=== PATIENT | female | born 1970 | race Caucasian/White ===

== ENCOUNTER → 2023-12-19 14:41 | Outpatient (BNVA) | payer MEDICAID, SELFPAY | PROVIDERS: PCP Nurse Practitioner Family; Visit Provider Nurse Practitioner Family | DX: M17.11 Unilateral primary osteoarthritis, right knee (principal); M81.0 Age-related osteoporosis without current pathological fracture; Z86.2 Personal history of diseases of the blood and blood-forming organs and certain disorders involving the immune mechanism; R60.0 Localized edema; Z86.39 Personal history of other endocrine, nutritional and metabolic disease; Z86.718 Personal history of other venous thrombosis and embolism | CPT/HCPCS: 73562; 80053; 80061; 82728; 83036; 83550; 84439; 84443; 85025; 85379 ==

== ENCOUNTER → 2024-04-09 15:49 | Outpatient (BNVA) | payer MEDICAID, SELFPAY | PROVIDERS: PCP Nurse Practitioner Family; Visit Provider Nurse Practitioner Family | DX: E11.9 Type 2 diabetes mellitus without complications (principal); Z71.89 Other specified counseling | CPT/HCPCS: 80053; 80307; 82043; 83036 ==

== ENCOUNTER → 2024-09-24 15:45 | Outpatient (BNVA) | payer MEDICAID, SELFPAY | PROVIDERS: PCP Nurse Practitioner Family; Visit Provider Nurse Practitioner Family | DX: E11.65 Type 2 diabetes mellitus with hyperglycemia (principal); Z86.2 Personal history of diseases of the blood and blood-forming organs and certain disorders involving the immune mechanism; E55.9 Vitamin D deficiency, unspecified | CPT/HCPCS: 80053; 80061; 82306; 82728; 83550; 83721; 85025 ==

== ENCOUNTER → 2024-10-29 15:12 | Outpatient (BNVA) | payer MEDICAID, SELFPAY | PROVIDERS: PCP Nurse Practitioner Family; Visit Provider Nurse Practitioner Family | DX: R06.02 Shortness of breath (principal) | CPT/HCPCS: 71046; 80053; 83036; 83880; 85025 ==

== ENCOUNTER 2024-11-19 17:05 | Inpatient (IN) | payer MEDICAID, SELFPAY ==
[2024-11-19 17:06] VITALS: BP 163/99; PULSE 84; TEMP 36.4; O2SAT 91
--- OUTSIDE RECORDS SUMMARY | 2024-11-19 17:14 | XMS_ITS | Clinical Summary ---
Author Organization [facility] Address [address] [place] [address] Care Team Providers Care Repatcher Name Role Phone Aliya Grace, MSN Primary Care Provider [phone] Source Comments PLEASE NOTE, if this patient is a minor, it may be UNLAWFUL to discuss sensitive information that is contained in these records (such as FAMILY PLANNING, MENTAL HEALTH or SUBSTANCE ABUSE) with the minor patient's parent or other person without the patient's specific authorization.[facility] Allergies Active Allergy Reactions Criticality Noted Date Comments Doxycycline Hives High 03/17/2021 Gadolinium-Containing Contrast Media Itching Low 03/29/2021 Patient stated she started to itch on her face right after contrast was injected which resolved with hydrating orally with water post exam with contrast. Patient denied difficulty breathing or swallowing, no hives present. Guaifenesin High 03/17/2021 Other Reaction(s): Seizure RESP DIFF, COMA Iodine Swelling Low 06/20/2007 Sulfa (Sulfonamide Antibiotics) Hives,Rash High 06/20/2007 Medications amoxicillin (AMOXIL) 500 mg capsule Take 1 Capsule by mouth every 8 (eight) hours 09/03/19 22 Active VENTOLIN HFA 90 mcg/actuation inhaler inhale TWO puffs, by INHALATION route, EVERY 6 HOURS NEEDED FOR wheezing Active prazosin (MINIPRESS) 2 mg capsule take 3 TO 4 capsules BY MOUTH ONCE DAILY AT BEDTIME NEEDED FOR nightmares 10/14/19 25 Active gabapentin (NEURONTIN) 300 mg capsule TAKE ONE CAPSULE BY MOUTH ON DAY ONE THEN TAKE TWO CAPSULES DAILY Active furosemide (LASIX) 40 mg tablet TAKE TWO TABLETS BY MOUTH ONCE DAILY IN THE MORNING AND ONE tablet AT NOON FOR FIVE DAYS AND THEN take TWO tablets every morning thereafter 03/20/19 25 Active hydroCHLOROthiazid e (HYDRODIURIL) 25 mg tablet Take 25 mg by mouth every morning. Active lamoTRIgine (LAMICTAL) 25 mg tablet TAKE THREE TABLETS BY MOUTH ONCE DAILY FOR mood stabilizer 10/14/19 25 Active TRUEPLUS LANCETS 33 gauge USE DIRECTED TO PRICK THE SKIN FOR BLOOD SUGAR CHECKS FOUR TIMES DAILY 09/12/19 25 Active metFORMIN (GLUCOPHAGE) 500 mg tablet Take 500 mg by mouth 2 (two) times daily with a meal. 07/25/19 25 Active lithium carbonate 300 mg capsule TAKE 1 CAPSULE BY MOUTH AT BEDTIME FOR BIPOLAR DEPRESSION 06/20/19 23 Active DULERA 200-5 mcg/actuation inhaler 2 Puffs 2 (two) times daily. 10/14/19 25 Active ondansetron ODT (ZOFRAN-ODT) 8 mg disintegrating tablet TAKE ONE TABLET BY MOUTH EVERY 8 HOURS NEEDED FOR nausea AND vomiting 01/25/20 24 Active QUEtiapine (SEROQUEL) 100 mg tablet TAKE 1 AND 1/2 TABLETS BY MOUTH ONCE DAILY AT BEDTIME FOR mood AND SLEEP Active FEROSUL 325 mg (65 mg iron) tablet Take 1 Tablet by mouth once daily. 05/09/19 25 Active FLUoxetine (PROZAC) 40 mg capsule Take 80 mg by mouth. 07/25/19 25 Active fluticasone (FLONASE) 50 mcg/actuation nasal spray USE TWO SPRAYS IN NOSTRIL(s) DAILY Active EPINEPHrine (EPIPEN) 0.3 mg/0.3 mL pen injector ADMINISTER 0.3 MG IN THE MUSCLE NEEDED FOR ANAPHYLAXIS . 12/20/19 24 Active atorvastatin (LIPITOR) 40 mg tablet Take 40 mg by mouth once daily. 10/14/19 25 Active TRUE METRIX GLUCOSE TEST STRIP strips USE DIRECTED WITH GLUCOMETER TO CHECK BLOOD SUGAR 08/02/19 25 Active TRUE METRIX AIR GLUCOSE METER monitoring kit USE DIRECTED TO CHECK BLOOD SUGAR 08/02/19 25 Active cetirizine (ZYRTEC) 10 mg tablet Take 10 mg by mouth once daily. 09/25/19 25 Active diazePAM (VALIUM) 10 mg tablet take ONE-HALF tablet TO ONE tablet BY MOUTH FOUR TIMES DAILY NEEDED FOR extreme anxiety Active doxepin (SINEQUAN) 50 mg capsule TAKE ONE CAPSULE BY MOUTH ONCE DAILY AT BEDTIME NEEDED FOR SLEEP 10/14/19 25 Active DULoxetine (CYMBALTA) [address] capsule TAKE ONE CAPSULE BY MOUTH ONCE DAILY AT BEDTIME FOR depression AND anxiety 10/14/19 25 Active Active Problems Problem Noted Date Diagnosed Date Asthma 03/17/2021 Bipolar disorder 03/17/2021 History of methicillin resis tant Staphylococcus aureus infection 03/17/2021 Impetigo 03/17/2021 Methicillin resistant Staphylococcus aureus infe ction 03/17/2021 Overview (10/21/2024): Abscess, closed collected 09/20/18 22:31:42 CDTAbscess, open collected 06/13/18 16:14:00 CDTAbscess, open collected 03/11/18 21:11:00 CSTNares collected 12/19/15 18:30:00 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/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 Osteoporosis 11/24/2008 Encounters Date Type Department Care Team Description 10/21/2024 1:00 PM CDT Office Visit [facility] [address] [place] [address] Sulma Yoo DMD from Last 3 Months Social History Tobacco Use Types Packs/Day Years Used Date Smoking Tobacco: Never Smokeless Tobacco: Never Tobacco Cessation:Counseling Given: Not Answered Social Connections Answer Date Recorded Connectedness 0 10/22/2023 Financial Resource Strain Answer Date R ecorded Financial Resource Strain 0 2023 Stress Answer Date Recorded Stress 0 05/30/2023 Physical Activity Answer Date Recorded Physical Activity 0 05/30/2023 Food Insecurity Answer Date Recorded Food 0 11/01/2023 Transportation Needs Answer Date Record ed Transportation 0 05/30/2023 Housing Stability Answer Date Recorded Housing 0 05/30/2023 Safety and Environment Answer Date Perry rded Safety 0 05/30/2023 Utilities Answer Date Recorded Utilities 0 05/30/2023 Employment Answer Date Recorded Stress 0 10/22/2023 Comments No Sex and Gender Information Value Date Recorded Sex Assigned at Not on file Legal Sex Female 7:19 PM PDT Gender Identity Female 07/27/2023 4:05 PM PDT Sexual Orientation Straight 07/27/2023 4: 05 PM PDT Last Filed Vital Signs Vital Sign Reading Time Taken Comments Blood Pressure 140/85 09/02/2021 12:11 PM CDT Pulse - - Temperature - - Respiratory Rate - - Oxygen Saturation - - Inhaled Oxygen Concentration - - Weight - - Height - - Body Mass Index - - Plan of Treatment Health Maintenance Due Date Last Done Comments Anxiety Screening 1968 Dental Perio Charting 1968 Dental Prophy 1968 HPV Screening 1968 Hepatitis C Screening 1968 LTBI Screening (#1) 1968 Lipid Screening 1968 Pap + HPV 1968 HIV Screening 07/24/1983 Imm-Hepatitis B (1 of 3 - 19 + 3-dose series) 07/24/1987 Imm-Pneumococcal 50+ (1 of 2 - PCV) 07/24/1987 Cervical Cancer Screening 1989 Pap Smear 1989 Breast Cancer Screening (Mammogram) 2008 CT Colonography 2013 Colonoscopy 2013 Colorectal Cancer Screening 2013 FIT/gFOBT 2013 Fecal DNA 2013 Flexible Sigmoidoscopy 2013 Imm-Zoster, Recombinant (1 of 2) 2018 Hypertension Screening (#1) 09/02/2022 Alcohol and Drug Screen 02/06/2024 Depression Annual Screen 02/06/2024 [id number] (2 - season) 2024 022 Imm-Influenza (#1) 2024 11/25/2020, 1 02/20/2015, 12/18/2000 Diabetes Screening 12/13/2024 12/14/2023 Tobacco Screening 10/21/2025 10/21/2024 Dental BW 10/23/2025 10/21/2024 Dental Examination 10/23/2025 10/21/2024 Imm-DTaP/Tdap/Td (2 - Td or Tdap) 11/14/2025 016 Dental FMX/Pano 10/23/2029 10/21/2024 Cervical Ablation/Cold-Knife Conization Discontinued Cervical Cryotherapy Discontinued Colposcopy Discontinued Endometrial Biopsy Discontinued Excision/Leep Discontinued HPV Genotyping Discontinued Vaginal Pap Discontinued Vulvoscopy Discontinued Procedures Procedure Name Priority Date/Time Associated Diagnosis Comments PANORAMIC RADIOGRAPHIC IMAGE Routine 10/21/2024 1:00 PM CDT Encounter for dental examination 25 INTRAORAL - PERIAPICAL EACH ADD RADIOGRAPH IMAGE Routine 10/21/2024 1:00 PM CDT Encounter for dental examination 10 INTRAORAL - PERIAPICAL EACH ADD RADIOGRAPH IMAGE Routine 10/21/2024 1:00 PM CDT Encounter for dental examination 6 INTRAORAL - PERIAPICAL FIRST RADIOGRAPHIC IMAGE Routine 10/21/2024 1:00 PM CDT Encounter for dental examination 8 INTRAORAL - PERIAPICAL EACH ADD RADIOGRAPH IMAGE Routine 10/21/2024 1:00 PM CDT Encounter for dental examination COMP ORAL EVALUATION - NEW/ESTABLISHED PATIENT Routine 10/21/2024 1:00 PM CDT Encounter for dental examination BITEWINGS - FOUR RADIOGRAPHIC IMAGES Routine 10/21/2024 1:00 PM CDT Encounter for dental examination 30 MOD AMALGAM - WISDOM (NON BILLABLE) Routine 10/21/2024 12:00 AM CDT 19 MODB AMALGAM - WISDOM (NON BILLABLE) Routine 10/21/2024 12:00 AM CDT from Last 3 Months Insurance [place] MEDICAID DENT[place] Care Teams Repatcher Relationship Specialty Start Date End Date Aliya Grace FNP, MSN [address] [place] [address] PCP - General IUSS ANALYST Nurse Practitioner 11/05/23
--- NOTE | 2024-11-19 17:24 | W.ED.PSYCHS ---
HPI - Psych General: Chief Complaint: Psychiatric Symptoms Stated Complaint: SI Time Seen by Provider: 11/19/24 17:05 History of Present Illness: Patient is 54-year-old female with longstanding history of depression, and anxiety, presents for suicide ideations. Patient presented to [facility] clinic in [place] with lower extremity edema, and suicide ideations. She was brought from the clinic over here due to psychiatric symptoms with suicide ideation. Patient stated her affairs were in order. She did not have a plan. Contributing factors: Patient lost her emotional support animal of 20 years that she relates as her daughter. Apparently she received her cat when she lost her children 20 years ago, and her cat was with her at all times. Her cat could talk, and was quite smart. She has guilt for keeping her cat alive an additional 2 months at the vet felt like the cat should be euthanized, and she has guilt for given her cat Valium with the gabapentin the last time when she quit talking. She is tearful, having bad dreams, dreams are worsening in nature. Associated symptoms: Reports depression and suicidal ideation Related Data Home Medications ?Medication ?Instructions ?Recorded ?Confirmed quetiapine 100 mg tablet mg PO 01/02/24 11/19/24 diazepam 10 mg tablet 10 mg PO 01/16/24 11/19/24 doxepin 25 mg capsule mg PO BEDTIME 01/16/24 11/19/24 fluoxetine 40 mg capsule 80 mg PO DAILY 01/16/24 11/19/24 lamotrigine 25 mg tablet 25 mg PO 01/16/24 11/19/24 prazosin 2 mg capsule 2 mg PO 01/16/24 11/19/24 quetiapine 100 mg tablet 100 mg PO DAILY 01/16/24 11/19/24 quetiapine 50 mg tablet 50 mg PO DAILY 01/16/24 11/19/24 Previous Rx's ?Medication ?Instructions ?Recorded alcohol swabs 1 pad topical DIRECTED #200 ea 12/28/23 atorvastatin 40 mg tablet 40 mg PO DAILY #90 tabs 12/28/23 ferrous sulfate 325 mg (65 mg 325 mg PO DAILY #90 tabs 12/28/23 iron) tablet ondansetron 8 mg disintegrating 8 mg PO Q8H PRN nausea and 01/25/24 tablet vomiting #20 tabs hydrochlorothiazide 25 mg tablet See Rx Instructions .Route 07/31/24 .COMPLEX #90 tabs blood sugar diagnostic (Blood #200 ea 08/01/24 Glucose Test strips) blood-glucose meter #1 ea 08/01/24 lancets #200 ea 08/01/24 cetirizine 10 mg tablet (Zyrtec) 10 mg PO DAILY #90 tabs 09/24/24 fluticasone propionate 50 2 spray intranasal DAILY #16 grams 09/24/24 mcg/actuation nasal spray,suspension epinephrine 0.3 mg/0.3 mL 0.3 mg (0.3 mL) IM Q10M PRN 10/14/24 injection, auto-injector (EpiPen) anaphylaxis #1 ea metformin 500 mg tablet See Rx Instructions .Route 10/28/24 .COMPLEX #60 tabs gabapentin 300 mg capsule 300 mg PO TID #90 caps 11/11/24 Allergies Allergy/AdvReac Type Severity Reaction Status Date / Time doxycycline Allergy swelling Verified 11/19/24 17:11 facial Iodinated Contrast Media Allergy ALGY-Swell Verified 11/19/24 17:11 Lip/Tongue/Throat Sulfa (Sulfonamide Allergy Unknown Verified 11/19/24 17:11 Antibiotics) Review of Systems General: Reports: 10 or more systems reviewed and unremarkable except in HPI and below Const: Reports: fatigue and malaise; Denies: fever(s) or chills Eyes: Denies: change in vision or blurry vision ENMT: Denies: nasal discharge Card: Denies: chest pain or palpitations Resp: Denies: dyspnea or productive cough GI: Reports: nausea; Denies: abdominal pain or vomiting : Denies: flank pain or difficulty voiding Neuro: Denies: headache(s) or numbness in extremities Psych: Reports: anxiety, depression, sleeping more, hopelessness, change in appetite, irritability and suicidal ideation PFSH ED PFSH: Social History Smoking and tobacco/nicotine status: never used tobacco/nicotine Physical Exam Const: COMMON NORMALS: no acute distress, average body habitus and patient oriented x3 HENMT: COMMON NORMALS: normocephalic and atraumatic HEAD & SCALP: normocephalic and atraumatic Neck/C-Spine: COMMON NORMALS: full ROM and no lymphadenopathy Lymph: LYMPHATIC: no lymphadenopathy noted Chest: COMMONS NORMALS: normal inspection of the chest and normal palpation of entire chest wall Resp: COMMON NORMALS: normal respiratory effort, No retractions and clear to auscultation bilaterally AUSCULTATION: clear to auscultation bilaterally Cardio: COMMON NORMALS: regular rate, regular rhythm and Peripheral pulses 2+ throughout RATE: regular rate RHYTHM: regular rhythm PERIPHERAL PULSES: Peripheral pulses 2+ throughout OTHER: +2 pedal edema equal GI: COMMON NORMALS: Normal to inspection, nondistended, normoactive bowel sounds present, Soft to palpation, non-tender and No hepatosplenomegaly present PALPATION: Yes Soft to palpation and Yes No hepatosplenomegaly present : COMMON NORMALS: Yes no CVA tenderness BLADDER/KIDNEY EXAM: Yes no CVA tenderness Back/Pelvis: COMMON NORMALS: no CVA tenderness Neuro: COMMON NORMALS: patient oriented x3 Course Reevaluation(s): Reevaluation #1: Patient resting, calm Consultations: Consultation #1: Dr. Patino accepted at 1900 Vital Signs: Vital signs: Vital Signs Temperature 97.6 F 11/19/24 17:06 Pulse Rate 84 11/19/24 17:06 Blood Pressure 163/99 11/19/24 17:06 Pulse Oximetry 91 11/19/24 17:06 Oxygen Delivery Me thod Room Air 11/19/24 17:06 MDM - Psych Medical Decision Making Patient is a 54-year-old female that reports to emergency room with history of depression, anxiety, and bipolar disorder, that lost her best friend, emotional support animal that went everywhere with her, her cat of 20 years. She just wants to . She is having bad dreams. She voluntarily wants to go to the psychiatric center. As well, she complained of lower extremity edema, and bloating. She has not had any medication today. I have switched her to spironolactone 100 mg p.o. x 1. No additional concerns were found by lab, and she is medically cleared. Discussed with Dr. Nuñez. Medical Records I reviewed the patient's medical records. Lab Data 11/19/24 17:52 11/19/24 17:52 Laboratory Results WBC 6.72 10^3/uL (3.29-11.43) 11/19/24 17:52 RBC 3.59 10^6/uL (3.85-5.65) L 11/19/24 17:52 Hgb 10.60 g/dL (11.27-16.99) L 11/19/24 17:52 Hct 34.0 % (36-47) L 11/19/24 17:52 MCV 94.7 fl (85-98) 11/19/24 17:52 MCH 29.5 pg (27-33) 11/19/24 17:52 MCHC 31.2 g/dL (30-55) 11/19/24 17:52 RDW 13.9 % (12.1-15.1) 11/19/24 17:52 Plt Count 193 10^3/cmm (157-399) 11/19/24 17:52 MPV 10.4 fL (7.4-10.4) 11/19/24 17:52 Neut % (Auto) 50.7 % 11/19/24 17:52 Lymph % (Auto) 34.5 % 11/19/24 17:52 Brule % (Auto) 9.5 % 11/19/24 17:52 Eos % (Auto) 4.8 % 11/19/24 17:52 Baso % (Auto) 0.4 % 11/19/24 17:52 Neut # (Auto) 3.40 10^3/uL (1.8-7.7) 11/19/24 17:52 Lymph # (Auto) 2.3 10^3/uL (0.8-4.8) 11/19/24 17:52 Brule # (Auto) 0.6 10^3/uL (0.2-0.9) 11/19/24 17:52 Eos # (Auto) 0.3 10^3/uL (0.0-0.8) 11/19/24 17:52 Baso # (Auto) 0.0 10^3/uL (0.0-0.1) 11/19/24 17:52 Nucleated RBC % (auto) 0 % 11/19/24 17:52 Nucleated RBCs # 0.0 /100WBC 11/19/24 17:52 Sodium 141 mmol/L (136-145) 11/19/24 17:52 Potassium 4.3 mmol/L (3.5-5.1) 11/19/24 17:52 Chloride 101 mmol/L (98-107) 11/19/24 17:52 Carbon Dioxide 31 mmol/L (22-29) H 11/19/24 17:52 Anion Gap 13.3 (5-19) 11/19/24 17:52 BUN 19 mg/dL (6-20) 11/19/24 17:52 Creatinine 0.9 mg/dL (0.5-0.9) 11/19/24 17:52 GFR Calculation 64.8 mL/min (90-130) L 11/19/24 17:52 Glucose 95 mg/dL (65-115) 11/19/24 17:52 Calculated Osmolality 294 mOsm/kg (285-295) 11/19/24 17:52 Calcium 9.2 mg/dL (8.5-10.5) 11/19/24 17:52 Total Bilirubin 0.2 mg/dL (0.15-1.2) 11/19/24 17:52 AST 18 U/L (0-32) 11/19/24 17:52 ALT 22 U/L (0-33) 11/19/24 17:52 Alkaline Phosphatase 118 U/L (35-105) H 11/19/24 17:52 Total Protein 6.5 g/dL (6.6-8.7) L 11/19/24 17:52 Albumin 3.7 g/dL (3.5-5.2) 11/19/24 17:52 Globulin 2.8 g/dL (1.3-4.6) 11/19/24 17:52 TSH 2.62 uIU/mL (0.27-4.20) 11/19/24 17:52 Urine Color Yellow (Yellow) 11/19/24 18:05 Urine Appearance Clear (CLEAR) 11/19/24 18:05 Urine pH 6.0 (5-7) 11/19/24 18:05 Ur Specific [place] 1.026 (1.005-1.030) 11/19/24 18:05 Urine Protein Negative (Negative) 11/19/24 18:05 Urine Glucose (UA) Negative (Normal) 11/19/24 18:05 Urine Ketones Trace (Negative) 11/19/24 18:05 Urine Blood Negative (Negative) 11/19/24 18:05 Urine Nitrate Negative (Negative) 11/19/24 18:05 Urine Bilirubin Negative (Negative) 11/19/24 18:05 Urine Urobilinogen 1.0 mg/dL (Negative) 11/19/24 18:05 Ur Leukocyte Esterase Negative (Negative) 11/19/24 18:05 Urine RBC 0-2 /hpf (0-2) 11/19/24 18:05 Urine WBC 0-5 /hpf (0-5) 11/19/24 18:05 Ur Squamous Epith Cells 0-5 /hpf (0-5) 11/19/24 18:05 Amorphous Sediment Not Reportable 11/19/24 18:05 Urine Bacteria Trace /hpf (NONE) 11/19/24 18:05 Hyaline Casts 2.46 /lpf 11/19/24 18:05 Salicylates < 0.3 mg/dL (3-10) L 11/19/24 17:52 Urine Opiates Screen Negative ng/mL (Negative) 11/19/24 18:05 Acetaminophen 5.5 ug/mL (10-30) L 11/19/24 17:52 Ur Barbiturates Screen Negative ng/mL (Negative) 11/19/24 18:05 Ur Phencyclidine Scrn Negative ng/mL (Negative) 11/19/24 18:05 Ur Amphetamines Screen Negative ng/mL (Negative) 11/19/24 18:05 U Benzodiazepines Scrn Positive ng/mL (Negative) H 11/19/24 18:05 Urine Cocaine Screen Negative ng/mL (Negative) 11/19/24 18:05 U Marijuana (THC) Screen Negative ng/mL (Negative) 11/19/24 18:05 Ethyl Alcohol < 10 mg/dL (0-10) 11/19/24 17:52 No radiology studies performed this visit Discharge Plan Discharge Patient Disposition: Xfer Psychiatric Hosp Clinical Impression: Suicidal ideation Condition: Stable Discharge Diet: Low Salt Discharge Activity: Resume usual activity Coding Level of Care Code ED Quality Review Trainer for Charli Oquendo
--- NOTE | 2024-11-19 17:25 | PC.NURSE ---
pt changed into green paper scrubs
[2024-11-19 18:06] LABS: Hematocrit 34.0 % (36-47); Hemoglobin 10.60 g/dL (11.27-16.99); Mean Corpuscular HGB Conc 31.2 g/dL (30-55); Mean Corpuscular Hemoglobin 29.5 pg (27-33); Mean Corpuscular Volume 94.7 fl (85-98); Nucleated Red Blood Cells % 0 %; Platelet Count 193 10^3/cmm (157-399); Red Blood Count 3.59 10^6/uL (3.85-5.65); White Blood Count 6.72 10^3/uL (3.29-11.43)
[2024-11-19 18:22] LABS: Glucose Urine UA Negative (Normal); Nitrate Urine Negative (Negative); Specific Gravity, Urine 1.026 (1.005-1.030)
[2024-11-19 18:28] LABS: Add Urine Microscopic? YES; PCP Screen Urine Negative (Negative)
[2024-11-19 18:37] LABS: Acetaminophen 5.5 ug/mL (10-30); Alanine Aminotransferase 22 U/L (0-33); Albumin Level 3.7 g/dL (3.5-5.2); Alkaline Phosphatase 118 U/L (35-105); Anion Gap 13.3 (5-19); Aspartate Amino Transferase 18 U/L (0-32); Blood Urea Nitrogen 19 mg/dL (6-20); Calcium 9.2 mg/dL (8.5-10.5); Carbon Dioxide 31 mmol/L (22-29); Chloride 101 mmol/L (98-107); Globulin 2.8 g/dL (1.3-4.6); Glucose 95 mg/dL (65-115); Osmolality Calculated 294 mOsm/kg (285-295); Potassium 4.3 mmol/L (3.5-5.1); Sodium 141 mmol/L (136-145); Thyroid Stimulating Hormone 2.62 uIU/mL (0.27-4.20); Total Protein 6.5 g/dL (6.6-8.7)
[2024-11-19 18:38] LABS: Alcohol Level < 10 mg/dL (0-10); Salicylate < 0.3 mg/dL (3-10)
[2024-11-19 20:22] VITALS: BP 120/86; PULSE 97; RESP 18; TEMP 36.7; O2SAT 91
[2024-11-19 22:00] VITALS: BP 120/86; PULSE 97; RESP 18; TEMP 36.7; O2SAT 91
--- NOTE | 2024-11-20 00:10 | PC.NURSE ---
96 Hour Involuntary Hold Patient Rights have been reviewed with the patient and a copy of the same has been provided to her. Olimpia Green RN was present at bedside during the presentation of Rights.
--- NOTE | 2024-11-20 04:20 | PC.ADMIT ---
Addendum entered by Olimpia Green RN 11/20/24 04:21: admission note Original Note: [email or web address] Minerva Bacon Admission Note: The patient,Khushi Portillo,54 y/o, was given written information regarding hospital policies, unit procedures and contact persons. Patient's smoking status: never smoked. pt skin assessment completed and pt left wrist and left ankle had multiple healing lacerations. When pt was asked about these she stated that she does cut, and she uses a razor blades. pt also had 2 scratches on her upper mid abdomen that she states were from cats. Vital Signs - 8 hr 11/19/24 20:22 11/19/24 20:24 11/19/24 22:00 Temperature 98.0 F 98.0 F Pulse Rate 97 97 Respiratory Rate 18 18 Blood Pressure 120/86 120/86 Pulse Oximetry 91 91 Oxygen Delivery Method Room Air Room Air Room Air
--- NOTE | 2024-11-20 04:22 | PC.NURSE ---
pt 96 hour When speaking with pt about her 96 hour hold, we had a discussion about what this meant. pt unhappy but understanding. also had a discussion with pt about resources out side of the facility for herself that she may not know about. pt receptive to this education
[2024-11-20 06:00] VITALS: BP 118/64; PULSE 72; RESP 12; O2SAT 88
--- NOTE | 2024-11-20 08:24 | W.PM.NPUH&PS ---
Providers/Chief Complaint Admitting Physician: Nando Patino MD Primary Care Provider: Kate Phillips NP Chief Complaint: SI HPI NPU History of Present Illness Khushi Portillo is a 54 year old female who presented to the emergency department with the following report: Chief Complaint: Psychiatric Symptoms Stated Complaint: SI Time Seen by Provider: 11/19/24 17:05 History of Present Illness: Patient is 54-year-old female with longstanding history of depression, and anxiety, presents for suicide ideations. Patient presented to [facility] clinic in [place] with lower extremity edema, and suicide ideations. She was brought from the clinic over here due to psychiatric symptoms with suicide ideation. Patient stated her affairs were in order. She did not have a plan. Contributing factors: Patient lost her emotional support animal of 20 years that she relates as her daughter. Apparently she received her cat when she lost her children 20 years ago, and her cat was with her at all times. Her cat could talk, and was quite smart. She has guilt for keeping her cat alive an additional 2 months at the vet felt like the cat should be euthanized, and she has guilt for given her cat Valium with the gabapentin the last time when she quit talking. She is tearful, having bad dreams, dreams are worsening in nature. Associated symptoms: Reports depression and suicidal ideation. She was admitted to the neuropsychiatric unit for definitive treatment of those issues. She was very upset about being here after her everything that occurred that was a plan for her to be here including coming from the clinic and being evaluated in the emergency department she was advised she would come to the unit but then was upset that she was not discharged immediately they put an affidavit in the chart but ultimately she was starting to push for discharge and so it 96-hour hold was instituted. Her UDS was unremarkable for anything outside of benzodiazepines and she does have a prescription reportedly for Valium 10 mg 1/2-1 p.o. 4 times daily as needed. She presented today reporting a very convoluted story about why she is here. Mostly what she was able to articulate was that she was sad at the of her cat. She reported that her cat was able to talk but then later as we reviewed that she was talking about occasionally saying mama. She then talked about the of her boys multiple years ago but then she identified that she was actually talking about the cats. And then she was talking about her sons reporting that they are in their 30s and she still pays for everything and there is always conflicts on the property but which she lives. She reports that this property has her children and their father who is her ex and they all live on the property but most of them in different buildings. She talked about significant conflicts on that property but cannot really articulate why she was identifying herself as suicidal yesterday both at the clinic and then here in the emergency department. She tried to explain it but it once again became a very long convoluted story that had something to do with her physical health and her reporting that she maintain fluid and had great concern about the fluid around her stomach and around my heart. She reports that her outpatient doctor identified that this fluid overload around her heart existed but she could not articulate how that was shown she talked about having blood draws and we discussed the fact that you cannot determine fluid around the heart by a blood test if she denied having had any confirmatory imaging. We tried to have a conversation to help understand what would separate this from a somatic delusion and she was not able to answer questions in a way that was meaningful. She denied active drug use. She reported a history of hospitalization in the distant past but then could not explain why that would have happened. She was very focused on wanting to discharge whenever questions were asked to get more helpful information she was incapable. We discussed getting some collateral information from her daughter and her out patient positions to understand what it happened in this situation and that we would identify what we could go from there. Meds NPU Home Medications ?Medication ?Instructions ?Recorded ?Confirmed ?Last Taken ?Type alcohol swabs 1 pad topical DIRECTED #200 ea 12/28/23 11/20/24 Unknown Rx atorvastatin 40 mg tablet 40 mg PO DAILY #90 tabs 12/28/23 11/19/24 Unknown Rx ferrous sulfate 325 mg (65 mg 325 mg PO DAILY #90 tabs 12/28/23 11/20/24 Unknown Rx iron) tablet quetiapine 100 mg tablet 250 mg PO DAILY 01/02/24 11/20/24 Unknown History diazepam 10 mg tablet See Rx Instructions .Route 01/16/24 11/20/24 Unknown History .COMPLEX PRN Anxiety doxepin 25 mg capsule 25 mg PO BEDTIME 01/16/24 11/19/24 Unknown History lamotrigine 25 mg tablet 25 mg PO DAILY 01/16/24 11/20/24 Unknown History prazosin 2 mg capsule 2 mg PO BEDTIME 01/16/24 11/20/24 Unknown History ondansetron 8 mg disintegrating 8 mg PO Q8H PRN nausea and 01/25/24 11/20/24 Unknown Rx tablet vomiting #20 tabs hydrochlorothiazide 25 mg tablet See Rx Instructions .Route 07/31/24 11/20/24 Unknown Rx .COMPLEX #90 tabs blood sugar diagnostic (Blood #200 ea 08/01/24 11/20/24 Unknown Rx Glucose Test strips) blood-glucose meter #1 ea 08/01/24 11/20/24 Unknown Rx lancets #200 ea 08/01/24 11/20/24 Unknown Rx cetirizine 10 mg tablet (Zyrtec) 10 mg PO DAILY #90 tabs 09/24/24 11/19/24 Unknown Rx fluticasone propionate 50 2 spray intranasal DAILY #16 grams 09/24/24 11/20/24 Unknown Rx mcg/actuation nasal spray,suspension epinephrine 0.3 mg/0.3 mL 0.3 mg (0.3 mL) IM Q10M PRN 10/14/24 11/20/24 Unknown Rx injection, auto-injector (EpiPen) anaphylaxis #1 ea metformin 500 mg tablet See Rx Instructions .Route 10/28/24 11/20/24 Unknown Rx .COMPLEX #60 tabs gabapentin 300 mg capsule 300 mg PO TID #90 caps 11/11/24 11/20/24 Unknown Rx albuterol sulfate 2.5 mg/3 mL 2.5 mg continuous nebulization TID 11/21/24 11/21/24 Unknown History (0.083 %) solution for nebulization PRN Shortness Of Breath Or Wheezing Allergies Allergy/AdvReac Type Severity Reaction Status Date / Time doxycycline Allergy swelling Verified 11/19/24 17:11 facial Iodinated Contrast Media Allergy ALGY-Swell Verified 11/19/24 17:11 Lip/Tongue/Throat Sulfa (Sulfonamide Allergy Unknown Verified 11/19/24 17:11 Antibiotics) PFSH NPU PFSH: Social History Smoking and tobacco/nicotine status: never used tobacco/nicotine Mental Status Exam MSE Comments: This is an obese versus morbidly obese white female in hospital scrubs with poor grooming and eye contact. No abnormal movements except for psychomotor retardation. Somewhat cooperative with exam in moderate distress. Speech was decreased rate and volume with some pauses. Mood described as fine I want to go home, affect subdued and odd. Thought process linear. Thought content: Patient denied suicidal or homicidal ideation but endorsed that at the clinic and on admission, there were no delusions reported but some bizarre delusions related to her animal in somatic delusions and possible paranoid/persecutory delusions seem to exist. She denied any auditory visual hallucinations but some of the things she discussed seem like they would in fact be considered hallucinations. Attention and concentration were intact and memory appeared unreliable but no more formally tested. She is alert and oriented times person and place. Insight, judgment and impulse control are impaired. Vitals/I&O/Wt Last Vital Signs Temp 98.0 F 11/19/24 22:00 Pulse 72 11/20/24 06:00 Resp 12 11/20/24 06:00 BP 118/64 11/20/24 06:00 Pulse Ox 88 L 11/20/24 06:00 O2 Del Method Room Air 11/20/24 06:00 Data NPU 11/19/24 17:52 11/19/24 17:52 A&P Assessment and plan 1. Bipolar 1 disorder, depressed: 2. Suicidal ideation: Plan: This is a 54-year-old white female with significant somatic focus and presenting on a 96-hour hold after reporting suicidality to an outpatient clinic and once again to the emergency department but a convoluted story of issues surrounding the fluid on her heart with no evidence of how that was determined with concern for delusions and psychosis. 1. Continue current medication. Patient likely will need a mood stabilizer versus antipsychotic. 2. Continue every 15 minute checks for safety. 3. Encourage individual, group and milieu therapy. 4. Obtain collateral information. 5. Observe against the backdrop of the 96-hour hold. PDMP PDMP Reviewed: Not Reviewed Involuntary Hold Information Hold Status: Legal Status: 96 Hour Hold Date/Time Hold Expires: 11-25-24 @ 2763 Attestations NPU Medical Necessity Statement*: Inpatient hospitalization is medically necessary and the clinically appropriate intervention at this time. We will monitor/initiate medications and make changes as indicated.? The patient will be hospitalized over 2 midnights.? The patient?s likely length of stay is 3-5 days. Coding Level of Care Code Acute Code for Chg Fwd Diagnoses Bipolar 1 disorder, depressed F31.9 Suicidal ideation R45.851
[2024-11-20] MEDS: ferrous sulfate EC 325 mg Tablet PO (08:57)
[2024-11-20 13:58] VITALS: BP 91/55; PULSE 80; RESP 17; TEMP 36.7; O2SAT 89
[2024-11-20 20:24] VITALS: BP 112/73; PULSE 119; RESP 18; TEMP 36.7; O2SAT 92
--- NOTE | 2024-11-21 06:52 | PC.NURSE ---
vs not collected per charge nurse, resp 17
[2024-11-21 08:24] VITALS: BP 108/64; PULSE 98; RESP 18; TEMP 36.7; O2SAT 90
[2024-11-21] MEDS: ferrous sulfate EC 325 mg Tablet PO (08:31)
[2024-11-21] MEDS: fluticasone nasal spray 16gm Btl 2 SPRAY INTRANASAL (08:41)
--- NOTE | 2024-11-21 09:14 | PC.NURSE ---
Called [facility] to verify if patient is on O2 at home, inhalers and any respiratory diagnosis. They are giving the message to [facility] to contact us back .
[2024-11-21 09:19] VITALS: O2SAT 86
--- NOTE | 2024-11-21 12:39 | XR_ITS ---
WS: [id number] XR chest 1V portable [id number] REASON FOR EXAM: sob FINDINGS: Chest is stable compared to the previous examination of 10/29/2024. The mediastinum is prominent, presumably due to moderate ectasia and tortuosity of the ascending aorta and proximal descending thoracic aorta. Mild prominence of the central pulmonary veins. Rounded density 2 cm in diameter overlying the proximal right mainstem bronchus. This could be a vascular structure such as a turn in the right main pulmonary artery or early branching of the right main pulmonary artery. The abnormality is present on the previous examination although poorly demonstrated due to the poor technique of that previous examination. Calcified granulomatous disease bilaterally. No acute pulmonary parenchymal or pleural abnormality. XR/XR chest 1V portable [id number] IMPRESSION: Stable chest without acute abnormality as above.
--- NOTE | 2024-11-21 13:43 | ECG_ITS ---
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 Measurements Intervals [place] Rate: 87 P: 61 IA: 170 QRS: 58 QRSD: 92 T: 43 QT: 361 QTc: 436 Interpretive Statements SINUS RHYTHM LOW QRS VOLTAGE IN PRECORDIAL LEADS [QRS DEFLECTION < 1.0 mV IN CHEST LEADS] No previous ECG available for comparison Electronically Signed On 11-22-2024 11:58:22 CDT by Jonatan Bose M.D. [email or web address] [id number]
--- NOTE | 2024-11-21 13:45 | PM.CONSULT ---
Providers/Reason For Consult Consulting Physician/Specialty*: Psychiatry Reason for Consult*: Shortness of breath Attending Physician: Nando Patino MD Primary Care Provider: Kate Phillips NP History of Present Illness History of Present Illness Khushi Portillo is a 54 year old female with a past medical history of type 2 diabetes mellitus, hypertension, hyperlipidemia, hypothyroidism, uses 2 L at home for? Who presents to [facility] due to shortness of breath, lower extremity edema. Currently patient is in neuropsychiatric unit, she reports that about a year ago, she was placed on oxygen, she has been told that she has asthma or COPD? She has been told that she has CHF? But she denies smoking, no history of vaping, no history of secondhand smoke exposure, no travel, no calf pain, calf swelling, but does have diffuse swelling, pitting edema bilateral lower extremities, anasarca, shortness of breath, she is on 2 L she is not exactly sure what diagnosis, but she has been on oxygen for the last year, she does report a history of sleep apnea, but cannot use a CPAP machine as she cannot tolerate it Review of Systems Card: Denies: chest pain Resp: Reports: dyspnea Medications/Allergies Home Medications ?Medication ?Instructions ?Recorded ?Confirmed ?Last Taken ?Type alcohol swabs 1 pad topical DIRECTED #200 ea 12/28/23 11/20/24 Unknown Rx atorvastatin 40 mg tablet 40 mg PO DAILY #90 tabs 12/28/23 11/19/24 Unknown Rx ferrous sulfate 325 mg (65 mg 325 mg PO DAILY #90 tabs 12/28/23 11/20/24 Unknown Rx iron) tablet quetiapine 100 mg tablet 250 mg PO DAILY 01/02/24 11/20/24 Unknown History diazepam 10 mg tablet See Rx Instructions .Route 01/16/24 11/20/24 Unknown History .COMPLEX PRN Anxiety doxepin 25 mg capsule 25 mg PO BEDTIME 01/16/24 11/19/24 Unknown History lamotrigine 25 mg tablet 25 mg PO DAILY 01/16/24 11/20/24 Unknown History prazosin 2 mg capsule 2 mg PO BEDTIME 01/16/24 11/20/24 Unknown History ondansetron 8 mg disintegrating 8 mg PO Q8H PRN nausea and 01/25/24 11/20/24 Unknown Rx tablet vomiting #20 tabs hydrochlorothiazide 25 mg tablet See Rx Instructions .Route 07/31/24 11/20/24 Unknown Rx .COMPLEX #90 tabs blood sugar diagnostic (Blood #200 ea 08/01/24 11/20/24 Unknown Rx Glucose Test strips) blood-glucose meter #1 ea 08/01/24 11/20/24 Unknown Rx lancets #200 ea 08/01/24 11/20/24 Unknown Rx cetirizine 10 mg tablet (Zyrtec) 10 mg PO DAILY #90 tabs 09/24/24 11/19/24 Unknown Rx fluticasone propionate 50 2 spray intranasal DAILY #16 grams 09/24/24 11/20/24 Unknown Rx mcg/actuation nasal spray,suspension epinephrine 0.3 mg/0.3 mL 0.3 mg (0.3 mL) IM Q10M PRN 10/14/24 11/20/24 Unknown Rx injection, auto-injector (EpiPen) anaphylaxis #1 ea metformin 500 mg tablet See Rx Instructions .Route 10/28/24 11/20/24 Unknown Rx .COMPLEX #60 tabs gabapentin 300 mg capsule 300 mg PO TID #90 caps 11/11/24 11/20/24 Unknown Rx albuterol sulfate 2.5 mg/3 mL 2.5 mg continuous nebulization TID 11/21/24 11/21/24 Unknown History (0.083 %) solution for nebulization PRN Shortness Of Breath Or Wheezing Allergies Allergy/AdvReac Type Severity Reaction Status Date / Time doxycycline Allergy swelling Verified 11/19/24 17:11 facial Iodinated Contrast Media Allergy ALGY-Swell Verified 11/19/24 17:11 Lip/Tongue/Throat Sulfa (Sulfonamide Allergy Unknown Verified 11/19/24 17:11 Antibiotics) Current Medications Generic Name Dose Route Start Last Admin Trade Name Freq PRN Reason Stop Dose Admin Acetaminophen 650 mg 11/19/24 20:21 11/21/24 08:32 Acetaminophen 325 Mg Tablet PO 650 mg Q4H PRN Administration MILD PAIN Atorvastatin Calcium 40 mg 11/20/24 09:00 11/21/24 08:32 Atorvastatin 40 Mg Tablet PO 40 mg DAILY PANCHO Administration Cetirizine HCl 10 mg 11/20/24 09:00 11/21/24 08:31 Cetirizine 10 Mg Tablet PO 10 mg DAILY PANCHO Administration Doxepin HCl 75 mg 11/19/24 22:15 11/20/24 21:21 Doxepin 25 Mg Capsule PO 75 mg BEDTIME PANCHO Administration Ferrous Sulfate 325 mg 11/20/24 09:00 11/21/24 08:31 Ferrous Sulfate Ec 325 Mg Tablet PO 325 mg DAILY PANCHO Administration Fluticasone Propionate 2 spray 11/21/24 09:00 11/21/24 08:41 Fluticasone Nasal Vina 16gm Btl INTRANASAL 2 spray DAILY PANCHO Administration Gabapentin 300 mg 11/20/24 09:00 11/21/24 08:31 Gabapentin 300 Mg Capsule PO 300 mg TID PANCHO Administration Hydrochlorothiazide 25 mg 11/20/24 09:00 11/21/24 08:31 Hydrochlorothiazide 25 Mg Tablet PO 25 mg DAILY PANCHO Administration Hydroxyzine Pamoate 50 mg 11/19/24 20:21 11/21/24 04:27 Hydroxyzine 25 Mg Capsule PO 50 mg Q6H PRN Administration ANXIETY Lamotrigine 25 mg 11/20/24 09:00 11/21/24 08:32 Lamotrigine 25 Mg Tablet PO 25 mg TID PANCHO Administration Metformin HCl 500 mg 11/19/24 23:28 11/21/24 08:32 Metformin 500 Mg Tablet PO 500 mg BIDWM PANCHO Administration Olanzapine 5 mg 11/19/24 20:21 11/20/24 07:57 Olanzapine 5 Mg Odt PO 5 mg Q4H PRN Administration Agitation/Psychosis Ondansetron HCl 4 mg 11/19/24 20:21 11/20/24 14:49 Ondansetron 4 Mg Tablet PO 4 mg Q6H PRN Administration NAUSEA AND VOMITING Prazosin HCl 2 mg 11/19/24 22:50 11/20/24 21:21 Prazosin 1 Mg Capsule PO 2 mg BEDTIME PANCHO Administration Quetiapine Fumarate 250 mg 11/19/24 22:15 11/20/24 21:30 Quetiapine 100 Mg Tablet PO 250 mg BEDTIME PANCHO Administration PFSH Acute PFSH: Medical History (Updated 11/21/24 @ 13:49 by Tyrel Oquendo MD) Type 2 diabetes mellitus Social History Smoking and tobacco/nicotine status: never used tobacco/nicotine Vitals/I&O/Wt Last Vital Signs Temp 98.0 F 11/21/24 08:24 Pulse 98 11/21/24 08:24 Resp 18 11/21/24 08:24 BP 108/64 11/21/24 08:24 Pulse Ox 86 L 11/21/24 09:19 O2 Del Method Room Air 11/21/24 09:19 Physical Exam Const: COMMON NORMALS: no acute distress and patient oriented x3 HENMT: COMMON NORMALS: normocephalic HEAD & SCALP: normocephalic Resp: COMMON NORMALS: normal respiratory effort, No retractions and No use of accessory muscles OTHER: Crackles in lower lung faustin Cardio: COMMON NORMALS: regular rate, regular rhythm, S1 normal heart sound present and S2 normal heart sound present RATE: regular rate RHYTHM: regular rhythm HEART SOUNDS: S1 normal heart sound present and S2 normal heart sound present GI: COMMON NORMALS: Normal to inspection, nondistended, normoactive bowel sounds present and non-tender Extremity: COMMON NORMALS: no calf tenderness Neuro: COMMON NORMALS: patient oriented x3 and CN's II-XII intact bilaterally Psych: COMMON NORMALS: mental status grossly normal Skin: NARRATIVE SKIN EXAM: 1+ pitting edema bilateral extremities, with anasarca Data 11/19/24 17:52 11/19/24 17:52 A&P Assessment and plan 1. Acute hypoxic respiratory failure: Plan: - Currently on 2 L, which is her baseline - But does have anasarca, 1+ pitting edema, crackles on examination no evidence of respiratory distress Plan - Will start diuresis - CBC, CMP, troponin series, BNP, chest x-ray cardiac echo - Further workup based on clinical progress Type 2 diabetes mellitus PDMP PDMP Reviewed: Not Reviewed Consult Attestations Medical Necessity Statement: Patient requires hospitalization for hypoxia, fluid overload Diagnoses Acute hypoxic respiratory failure J96.01
[2024-11-21 14:00] VITALS: BP 91/63; PULSE 105; PULSE 89; RESP 17; RESP 18; TEMP 36.7; O2SAT 92; O2SAT 93
[2024-11-21 14:14] LABS: Hematocrit 37.8 % (36-47); Hemoglobin 12.00 g/dL (11.27-16.99); Mean Corpuscular HGB Conc 31.7 g/dL (30-55); Mean Corpuscular Hemoglobin 30.1 pg (27-33); Mean Corpuscular Volume 94.7 fl (85-98); Nucleated Red Blood Cells % 0 %; Platelet Count 237 10^3/cmm (157-399); Red Blood Count 3.99 10^6/uL (3.85-5.65); White Blood Count 7.76 10^3/uL (3.29-11.43)
[2024-11-21 14:40] LABS: Troponin(5th) Baseline 9 ng/L (0-10)
[2024-11-21 14:49] LABS: Anion Gap 16.5 (5-19); Blood Urea Nitrogen 20 mg/dL (6-20); Calcium 9.8 mg/dL (8.5-10.5); Carbon Dioxide 31 mmol/L (22-29); Chloride 98 mmol/L (98-107); Glucose 90 mg/dL (65-115); NT Pro B Type Natriuretic Pept < 36 pg/mL (0-125); Osmolality Calculated 294 mOsm/kg (285-295); Potassium 4.5 mmol/L (3.5-5.1); Sodium 141 mmol/L (136-145)
--- NOTE | 2024-11-21 15:12 | P.NPUPN_ITS ---
Subjective NPU 2 Subjective: Patient presented today reporting she is okay. She continued to be interested in discharge but was reasonable and excepting our recommendation for hospitalist consult and make sure we understand her physical picture to understand what is safe for discharge and also identify if there are any concerns that might be impacting her mental health. She denied any side effects to her medications. Mental Status Exam 2 MSE Comments: This is an obese versus morbidly obese white female in hospital scrubs with poor grooming and eye contact. No abnormal movements except for psychomotor retardation. Somewhat cooperative with exam in moderate distress. Speech was decreased rate and volume with some pauses. Mood described as fine I want to go home, affect subdued and odd. Thought process linear. Thought content: Patient denied suicidal or homicidal ideation but endorsed that at the clinic and on admission, there were no delusions reported but some bizarre delusions related to her animal in somatic delusions and possible paranoid/persecutory delusions seem to exist. She denied any auditory visual hallucinations but some of the things she discussed seem like they would in fact be considered hallucinations. Attention and concentration were intact and memory appeared unreliable but no more formally tested. She is alert and oriented times person and place. Insight, judgment and impulse control are impaired. Vitals/I&O/Wt Last Vital Signs Temp 98.1 F 11/21/24 14:00 Pulse 105 H 11/21/24 14:00 Resp 17 11/21/24 14:00 BP 91/63 11/21/24 14:00 Pulse Ox 92 11/21/24 14:00 O2 Del Method Room Air 11/21/24 14:00 O2 Flow Rate 2 11/21/24 14:00 Data NPU 11/21/24 14:06 11/21/24 14:06 A&P Assessment and plan 1. Bipolar 1 disorder, depressed: 2. Suicidal ideation: Plan: This is a 54-year-old white female with significant somatic focus and presenting on a 96-hour hold after reporting suicidality to an outpatient clinic and once again to the emergency department but a convoluted story of issues surrounding the fluid on her heart with no evidence of how that was determined with concern for delusions and psychosis. 1. Continue current medication. Patient likely will need a mood stabilizer versus antipsychotic. 2. Continue every 15 minute checks for safety. 3. Encourage individual, group and milieu therapy. 4. Obtain collateral information. 5. Observe against the backdrop of the 96-hour hold. 6. Prescient hospitalist consult I will follow recommendations as indicated. PDMP PDMP Reviewed: Not Reviewed Involuntary Hold Information 2 Hold Status: Legal Status: 96 Hour Hold Date/Time Hold Expires: 11-25-24 @ 2213 Attestations NPU 2 Medical Necessity Statement*: Inpatient hospitalization is medically necessary and the clinically appropriate intervention at this time. We will monitor/initiate medications and make changes as indicated.? The patient?s likely length of stay is 2-4 days. Coding Level of Care Code Acute Code for Chg Fwd Diagnoses Bipolar 1 disorder, depressed F31.9 Suicidal ideation R45.851
--- NOTE | 2024-11-21 15:43 | ECG_ITS ---
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 Measurements Intervals [place] Rate: 82 P: 34 MN: 162 QRS: 53 QRSD: 78 T: 36 QT: 360 QTc: 421 Interpretive Statements SINUS RHYTHM LOW QRS VOLTAGE IN PRECORDIAL LEADS [QRS DEFLECTION < 1.0 mV IN CHEST LEADS] Compared to ECG 11/21/2024 13:59:59 No significant changes Electronically Signed On 11-22-2024 12:06:56 CDT by Jonatan Bose M.D. [email or web address] [id number]
[2024-11-21 17:46] LABS: Troponin 5 2HR 8.81 ng/L (0-10)
[2024-11-21 17:47] LABS: Troponin 5 2HR Delta -0.19 ABS# (0-10)
[2024-11-21] MEDS: neomycin-poly-bacitracin oint 28 gm 1 APPLIC TOPICAL (20:38)
[2024-11-21] MEDS: blistex lip oint 7 gm Tube 1 APPLIC TOPICAL (20:42)
[2024-11-21 20:54] VITALS: BP 101/61; PULSE 90; RESP 18; TEMP 36.8; O2SAT 92
[2024-11-21 21:09] LABS: Troponin 5 6HR 7.53 ng/L (0-10)
--- NOTE | 2024-11-21 21:09 | ECG_ITS ---
[facility] Test Date: 2024-11-21 Pat Name: Khushi Portillo Department: Room: 153 Gender: Female Beam Department Supervisor: : 1970 Requested By: yTrel Oquendo Order Number: [id number] Gilda MD: Jonatan Bose M.D. Measurements Intervals [place] Rate: 92 P: 49 [place]: 169 QRS: 52 QRSD: 80 T: 36 QT: 343 QTc: 425 Interpretive Statements SINUS RHYTHM Compared to ECG 11/21/2024 15:40:20 No significant changes Electronically Signed On 11-22-2024 12:05:39 CDT by Jonatan Bose M.D. [email or web address] [id number]
[2024-11-21 21:15] LABS: Troponin 5 6HR Delta -1.47 ng/L (0-12)
[2024-11-22 06:40] VITALS: BP 85/48; PULSE 91; RESP 14; TEMP 36.9; O2SAT 96
[2024-11-22 07:03] VITALS: BP 101/68
[2024-11-22] MEDS: ferrous sulfate EC 325 mg Tablet PO (08:04)
[2024-11-22] MEDS: fluticasone nasal spray 16gm Btl 2 SPRAY INTRANASAL (08:05)
--- NOTE | 2024-11-22 09:01 | P.NPUPN_ITS ---
Subjective NPU 2 Subjective: Patient presented today reporting that she is feeling better. She reports having the fluid removed has been helpful in getting things back on track for her. She continues to be somewhat isolative per staff reports and direct observation and we discussed her hopefully being more active and coming out of the room and demonstrating what her activity would look like at home. She denied any side effects to her medications. Mental Status Exam 2 MSE Comments: This is an obese versus morbidly obese white female in hospital scrubs with poor grooming and eye contact. No abnormal movements except for psychomotor retardation. Somewhat cooperative with exam in moderate distress. Speech was decreased rate and volume with some pauses. Mood described as fine I want to go home, affect subdued and odd. Thought process linear. Thought content: Patient denied suicidal or homicidal ideation but endorsed that at the clinic and on admission, there were no delusions reported but some bizarre delusions related to her animal in somatic delusions and possible paranoid/persecutory delusions seem to exist. She denied any auditory visual hallucinations but some of the things she discussed seem like they would in fact be considered hallucinations. Attention and concentration were intact and memory appeared unreliable but no more formally tested. She is alert and oriented times person and place. Insight, judgment and impulse control are impaired. Vitals/I&O/Wt Last Vital Signs Temp 98.5 F 11/22/24 06:40 Pulse 91 11/22/24 06:40 Resp 14 11/22/24 06:40 BP 101/68 11/22/24 07:03 Pulse Ox 96 11/22/24 06:40 O2 Del Method Non-Rebreather 11/22/24 06:40 O2 Flow Rate 2 11/22/24 06:40 Data NPU 11/21/24 14:06 11/22/24 08:58 A&P Assessment and plan 1. Bipolar 1 disorder, depressed: 2. Suicidal ideation: Plan: This is a 54-year-old white female with significant somatic focus and presenting on a 96-hour hold after reporting suicidality to an outpatient clinic and once again to the emergency department but a convoluted story of issues surrounding the fluid on her heart with no evidence of how that was determined with concern for delusions and psychosis. 1. Continue current medication. Patient likely will need a mood stabilizer versus antipsychotic. 2. Continue every 15 minute checks for safety. 3. Encourage individual, group and milieu therapy. 4. Obtain collateral information. 5. Observe against the backdrop of the 96-hour hold. 6. Prescient hospitalist consult I will follow recommendations as indicated. PDMP PDMP Reviewed: Not Reviewed Involuntary Hold Information 2 Hold Status: Legal Status: 96 Hour Hold Date/Time Hold Expires: 11-25-24 @ 2213 Attestations NPU 2 Medical Necessity Statement*: Inpatient hospitalization is medically necessary and the clinically appropriate intervention at this time. We will monitor/initiate medications and make changes as indicated.? The patient?s likely length of stay is 2-4 days. Coding Level of Care Code Acute Code for Chg Fwd Diagnoses Bipolar 1 disorder, depressed F31.9 Suicidal ideation R45.851
[2024-11-22 10:07] LABS: Anion Gap 16.2 (5-19); Blood Urea Nitrogen 24 mg/dL (6-20); Calcium 9.4 mg/dL (8.5-10.5); Carbon Dioxide 31 mmol/L (22-29); Chloride 97 mmol/L (98-107); Glucose 132 mg/dL (65-115); Osmolality Calculated 296 mOsm/kg (285-295); Potassium 4.2 mmol/L (3.5-5.1); Sodium 140 mmol/L (136-145)
--- NOTE | 2024-11-22 12:34 | CTR_ITS ---
PROCEDURE INFORMATION: Exam: CT Chest Without Contrast; Diagnostic Exam date and time: 11/22/2024 2:15 PM Age: 54 years old Clinical indication: Shortness of breath; Additional info: SOB TECHNIQUE: Imaging protocol: Diagnostic computed tomography of the chest without contrast. Radiation optimization: All CT scans at this facility use at least one of these dose optimization techniques: automated exposure control; mA and/or kV adjustment per patient size (includes targeted exams where dose is matched to clinical indication); or iterative reconstruction. COMPARISON: CR XR chest 1V portable [id number] 11/21/2024 2:53 PM RADIATION DOSE METRICS: Total DLP (mGy-cm): 738.04 FINDINGS: Lungs: Minimal dependent left lower lobe atelectasis. Horizontal linear atelectasis anterior right upper lobe versus scar. Pleural spaces: Trace posterior left hemithoracic pleural thickening. Heart: Unremarkable. No cardiomegaly. No pericardial effusion. Coronary arteries: There is mild atherosclerotic calcification of the coronary arteries. Lymph nodes: Unremarkable. No enlarged lymph nodes. Vasculature: Unremarkable. No aortic aneurysm. Bones/joints: Unremarkable. No acute fracture. Soft tissues: Unremarkable. CT/CT chest con [id number] IMPRESSION: No acute findings.
--- NOTE | 2024-11-22 12:35 | USR_ITS ---
PROCEDURE INFORMATION: Exam: US Duplex Lower Extremity Veins, Bilateral Exam date and time: 11/22/2024 2:00 PM Age: 54 years old Clinical indication: Swelling (edema) of limb; Lower extremity, bilateral TECHNIQUE: Imaging protocol: Real-time duplex ultrasound of the bilateral extremities with 2-D galvez scale, color Doppler flow and spectral waveform analysis including responses to compression and other maneuvers (when performed) with image documentation. Complete exam focused on the lower extremity veins. COMPARISON: CR XR knee RT 3V* [id number] 12/19/2023 2:42 PM FINDINGS: Right deep veins: Unremarkable. The common femoral, femoral, proximal profunda femoral and popliteal veins are patent without thrombus. Normal Doppler waveforms. Normal compressibility and/or augmentation response. Left deep veins: Unremarkable. The common femoral, femoral, proximal profunda femoral and popliteal veins are patent without thrombus. Normal Doppler waveforms. Normal compressibility and/or augmentation response. Superficial veins: Greater saphenous veins at the saphenofemoral junctions are patent bilaterally without thrombus. Soft tissues: Unremarkable. US/CV venous duplex [facility] [id number] IMPRESSION: No evidence of deep vein thrombosis.
--- NOTE | 2024-11-22 13:43 | USCV_ITS ---
Khushi Portillo Age: 54 Gender: F : 1970 Exam Date: 11/22/2024 13:22 Ordering Phys: Tyrel Oquendo MD Technologist: Ron Rodriguez Exam Location: [facility] [place] Indication: sob BP: 101 / 68 HR: 83 Rhythm: Sinus Technical Quality: Adequate MEASUREMENTS (Male / Female) Normal Values 2D ECHO LV Diastolic Diameter PLAX 4.4 cm 4.2 - 5.9 / 3.9 - 5.3 cm IVS Diastolic Thickness 1.2 cm 0.6 - 1.0 / 0.6 - 0.9 cm IVS Systolic Thickness 1.4 cm LVPW Diastolic Thickness 0.9 cm 0.6 - 1.0 / 0.6 - 0.9 cm LVPW Systolic Thickness 2.3 cm LVOT Diameter 2.0 cm LV Ejection Fraction 2D Teich 64.9 % LV Ejection Fraction MOD 4C 62.6 % LV Ejection Fraction MOD 2C 65.9 % LV Ejection Fraction 2C AL 67.1 % LA Diameter 3.6 cm RA Systolic Volume 4C AL 28.5 ml RA Systolic Volume 4C MOD 27.5 ml LA Sys Volume AL 45.5 cm cubed LA Sys Volume Index AL 18.3 cm cubed/m squared Aorta at Sinotubular Diameter 2.3 cm IVC Diameter 1.7 cm M-MODE LA Ao Ratio MM 1.6 AV Cusp Separation MM 1.8 cm DOPPLER AV Peak Velocity 194.2 cm/s LVOT Peak Velocity 116.0 cm/s AV Area Cont Eq vti 1.9 cm squared AV Area Cont Eq pk 1.9 cm squared MV Peak Velocity 85.0 cm/s MV Area PHT 3.5 cm squared Mitral E to A Ratio 0.9 TV Peak Velocity 218.5 cm/s TR Peak Velocity 222.0 cm/s TR Peak Gradient 19.7 mmHg TR Mean Velocity 192.0 cm/s TR Mean Gradient 15.4 mmHg TR Velocity Time Integral 53.9 cm PV Peak Velocity 111.0 cm/s RV Ejection Time 0.2 s FINDINGS Left Ventricle Normal left ventricular size, systolic function and ejection fraction of 65%. Normal left ventricular diastolic function. Mild hypertrophy of the ventricular septum. Right Ventricle Normal right ventricular size and systolic function. Right Atrium Normal right atrial size. Left Atrium Normal left atrial size. IA Septum Normal appearance of the interatrial septum. Mitral Valve Normal mitral valve structure. Trace regurgitation. Aortic Valve Normal aortic valve structure. No aortic valve stenosis. Trace aortic valve regurgitation. Tricuspid Valve Normal tricuspid valve structure. No tricuspid valve stenosis. Trace regurgitation. Normal pulmonary pressure. Pulmonic Valve Normal pulmonic valve structure. No pulmonic valve stenosis or regurgitation. Pericardium No pericardial effusion. Aorta Normal diameter of the aortic root and ascending thoracic aorta. IVC Normal IVC diameter. CONCLUSIONS Normal left ventricular size, systolic function and ejection fraction of 65%. Normal left ventricular diastolic function. Mild hypertrophy of the ventricular septum. Normal right ventricular size and systolic function. No significant valvular abnormalities. Roberto Styles MD, FACC (Electronically Signed) Final Date: 22 November 2024 14:11 S
--- NOTE | 2024-11-22 13:46 | PC.NURSE ---
Pt. left the floor for a CT and ultra sound with security and PSA
[2024-11-22 14:00] VITALS: BP 89/57; PULSE 75; RESP 18; TEMP 36.7; O2SAT 97
--- NOTE | 2024-11-22 14:25 | PC.NURSE ---
Pt. returned to the NPU
--- NOTE | 2024-11-22 15:49 | P.PN_ITS ---
Subjective 2 Subjective: Patient was seen this morning, alert oriented x 3, following all commands, shortness of breath improving, no chest pain Vitals/I&O/Wt Last Vital Signs Temp 98.0 F 11/22/24 14:00 Pulse 75 11/22/24 14:00 Resp 18 11/22/24 14:00 BP 89/57 11/22/24 14:00 Pulse Ox 97 11/22/24 14:00 O2 Del Method Nasal Cannula 11/22/24 14:00 O2 Flow Rate 2 11/22/24 14:00 Physical Exam 2 Const: COMMON NORMALS: no acute distress and patient oriented x3 Resp: COMMON NORMALS: normal respiratory effort, No retractions, No use of accessory muscles and clear to auscultation bilaterally AUSCULTATION: clear to auscultation bilaterally Cardio: COMMON NORMALS: regular rate, regular rhythm, S1 normal heart sound present and S2 normal heart sound present RATE: regular rate RHYTHM: r egular rhythm HEART SOUNDS: S1 normal heart sound present and S2 normal heart sound present GI: COMMON NORMALS: Normal to inspection, nondistended, normoactive bowel sounds present and non-tender Extremity: COMMON NORMALS: no pedal edema Neuro: COMMON NORMALS: patient oriented x3 Psych: COMMON NORMALS: mental status grossly normal Data 11/21/24 14:06 11/22/24 08:58 A&P Assessment and plan 1. Acute hypoxic respiratory failure: Plan: - Currently on 2 L, which is her baseline - But does have anasarca, 1+ pitting edema, crackles on examination no evidence of respiratory distress Plan - Status post 1 dose of Lasix - Cardiac echo, venous ultrasound, CT chest - Further workup based on clinical progress Type 2 diabetes mellitus PDMP PDMP Reviewed: Not Reviewed Attestations 2 Medical Necessity Statement*: Patient requires hospitalization for respiratory failure Diagnoses Acute hypoxic respiratory failure J96.01
--- NOTE | 2024-11-22 21:00 | PC.NURSE ---
Frequently reapproaching nsg, demanding et inconsolable. Hateful et unkind. Nsg redirecting et attempting to resolve as able, however most of what she requests are not attainable. Physician observing. Structured responses seem to deescalate behavior some. Nursing continues to monitor et assist.
[2024-11-22 21:36] VITALS: BP 121/87; PULSE 102; RESP 19; TEMP 36.7; O2SAT 92
[2024-11-22 21:42] VITALS: BMI 46.9
--- NOTE | 2024-11-23 05:51 | PC.NURSE ---
Pt c/o I have not seen a medical doctor since I've been here, only a psych doctor , however Dr. Oquendo saw her yesterday morning, 11/22. Pt. c/o Why is everyone punishing me , after asking for food before it has arrived from dietary/ snack times almost arriving. Nursing consoles as able, however patient is not receptive to reality based logic.
[2024-11-23 06:00] VITALS: BP 97/59; PULSE 81; RESP 18; TEMP 36.9; O2SAT 95
[2024-11-23] MEDS: fluticasone nasal spray 16gm Btl 2 SPRAY INTRANASAL (07:52)
[2024-11-23] MEDS: blistex lip oint 7 gm Tube 1 APPLIC TOPICAL (07:53)
[2024-11-23] MEDS: ferrous sulfate EC 325 mg Tablet PO (07:54)
[2024-11-23 08:09] VITALS: PULSE 114; RESP 18; O2SAT 94
--- NOTE | 2024-11-23 12:41 | P.PN_ITS ---
Subjective 2 Subjective: Patient was seen this morning, no chest pain, no shortness of breath, no abdominal pain, edema improving, discussed with patient that she has a history of sleep apnea refuses to use CPAP, likely the cause of her shortness of breath, and edema is from sleep apnea she will need to follow-up with pulmonary, follow- up with primary care she will need to have CPAP, but will have to follow-up with primary care, no smoking, no vaping, Vitals/I&O/Wt Last Vital Signs Temp 98.4 F 11/23/24 06:00 Pulse 114 H 11/23/24 08:09 Resp 18 11/23/24 08:09 BP 97/59 11/23/24 06:00 Pulse Ox 94 11/23/24 08:09 O2 Del Method Room Air 11/23/24 08:09 O2 Flow Rate 2 11/22/24 14:00 Weight last 48 hrs Weight 127.913 kg Physical Exam 2 Const: COMMON NORMALS: no acute distress and patient oriented x3 Resp: COMMON NORMALS: normal respiratory effort, No retractions, No use of accessory muscles and clear to auscultation bilaterally AUSCULTATION: clear to auscultation bilaterally Cardio: COMMON NORMALS: regular rate, regular rhythm, S1 normal heart sound present and S2 normal heart sound present RATE: regular rate RHYTHM: r egular rhythm HEART SOUNDS: S1 normal heart sound present and S2 normal heart sound present GI: COMMON NORMALS: Normal to inspection, nondistended, normoactive bowel sounds present and non-tender Extremity: COMMON NORMALS: no pedal edema Neuro: COMMON NORMALS: patient oriented x3 Psych: COMMON NORMALS: mental status grossly normal Data 11/21/24 14:06 11/22/24 08:58 A&P Assessment and plan 1. Acute hypoxic respiratory failure: Plan: - Currently on 2 L, which is her baseline Plan - Status post 1 dose of Lasix -Will need Lasix 20 mg p.o. daily, with potassium replacement therapy as needed on discharge -Use Lasix if she gains more than 3 pounds or develops edema or develops shortness of breath -Will need to follow-up with pulmonary as outpatient -Will need to have CPAP as outpatient, follow-up with primary care CT chest - FINDINGS: Lungs: Minimal dependent left lower lobe atelectasis. Horizontal linear atelectasis anterior right upper lobe versus scar. Pleural spaces: Trace posterior left hemithoracic pleural thickening. Heart: Unremarkable. No cardiomegaly. No pericardial effusion. Coronary arteries: There is mild atherosclerotic calcification of the coronary arteries. Lymph nodes: Unremarkable. No enlarged lymph nodes. Vasculature: Unremarkable. No aortic aneurysm. Bones/joints: Unremarkable. No acute fracture. Soft tissues: Unremarkable. Cardiac echo CONCLUSIONS Normal left ventricular size, systolic function and ejection fraction of 65%. Normal left ventricular diastolic function. Mild hypertrophy of the ventricular septum. Normal right ventricular size and systolic function. No significant valvular abnormalities. Venous ultrasound negative for DVT Type 2 diabetes mellitus PDMP PDMP Reviewed: Not Reviewed Attestations 2 Medical Necessity Statement*: Requires hospitalization for respiratory failure Diagnoses Acute hypoxic respiratory failure J96.01
--- NOTE | 2024-11-23 12:41 | PC.NURSE ---
Pt has requested that she would like a doctor to look at her feet. Pt complained that she is a diabetic and her toenails are getting uncomfortable. This nurse suggested that we could set her up with a referral with a authorizer upon discharging from the Psych Unit.
--- NOTE | 2024-11-23 12:54 | P.NPUPN_ITS ---
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 She continued to report that she was trying to get better. She had limited engagement with this marketing copywriter. She was lying in bed and appeared excessively tired. She reported feeling tired and sad and stated that she had lost her emotional support animal recently. She reported no side effects from her current medication. She was unable to clearly report how frequently she had taken her Valium which had been prescribed up to 40 mg/day. She did not appear to have any clear benzodiazepine withdrawal symptoms at this time despite not having started the Valium yet here on the unit. She had remained isolative. She reported no side effects from her medication. Patient reported that she refused to wear the CPAP despite severe sleep apnea. She remained on oxygen on the unit and remained on 1-1. Mental Status Exam 2 MSE Comments: This is a morbidly obese white female in hospital scrubs with poor grooming and eye contact. No abnormal movements except for psychomotor retardation. Somewhat cooperative with exam in moderate distress. Speech was decreased rate and volume with some pauses. Mood described as okay, when can i go home. Her affect was odd and subdued. Thought process was linear and logical. Thought content: Patient denied suicidal or homicidal ideation. There were no overt delusions appreciated but she appeared to be paranoid at times. She denied any auditory or visual hallucinations but did at times appear to be responding to internal stimuli. Attention and concentration were intact and memory appeared unreliable but no more formally tested. She is alert and oriented times person and place. Insight, judgment and impulse control are impaired. Vitals/I&O/Wt Last Vital Signs Temp 98.4 F 11/23/24 06:00 Pulse 114 H 11/23/24 08:09 Resp 18 11/23/24 08:09 BP 97/59 11/23/24 06:00 Pulse Ox 94 11/23/24 08:09 O2 Del Method Room Air 11/23/24 08:09 O2 Flow Rate 2 11/22/24 14:00 Weight last 48 hrs Weight 127.913 kg Data NPU 11/21/24 14:06 11/22/24 08:58 A&P Assessment and plan 1. Bipolar 1 disorder, depressed: 2. Suicidal ideation: Plan: This is a 54-year-old white female with significant somatic focus and presenting on a 96-hour hold after reporting suicidality to an outpatient clinic and once again to the emergency department but a convoluted story of issues surrounding the fluid on her heart with no evidence of how that was determined with concern for delusions and psychosis. 1. Increase seroquel 300mg at night, increase lamotrigine to 50mg bid, continue prazosin 2mg at night and doxepin at 75mg at night. Consider simplification of her medical regimen. 2. Continue every 15 minute checks for safety. 3. Encourage individual, group and milieu therapy. 4. Obtain collateral information. 5. Observe against the backdrop of the 96-hour hold. 6. Prescient hospitalist consult I will follow recommendations as indicated. PDMP PDMP Reviewed: Not Reviewed Involuntary Hold Information 2 Hold Status: Legal Status: 96 Hour Hold Date/Time Hold Expires: 11-25-24 @ 2213 Attestations NPU 2 Medical Necessity Statement*: Inpatient hospitalization is medically necessary and the clinically appropriate intervention at this time. We will monitor/initiate medications and make changes as indicated.? The patient?s likely length of stay is 2-4 days. Coding Level of Care Code Acute Code for Chg Fwd Diagnoses Bipolar 1 disorder, depressed F31.9 Suicidal ideation R45.851
[2024-11-23 13:59] VITALS: BP 107/65; PULSE 81; RESP 16; TEMP 37.3; O2SAT 94
[2024-11-23] MEDS: polyethylene glycol 3350 Pkt 17 gm PO (20:42)
[2024-11-23 22:00] VITALS: BP 117/84; PULSE 102; RESP 20; TEMP 36.6; O2SAT 94
[2024-11-24 06:00] VITALS: BP 111/70; PULSE 109; RESP 20; TEMP 36.5; O2SAT 93
[2024-11-24] MEDS: ferrous sulfate EC 325 mg Tablet PO (08:01)
[2024-11-24] MEDS: sennosides-docusate Tablet 2 TAB PO (08:04)
--- NOTE | 2024-11-24 10:40 | PC.RESP ---
rt called at approx 843 for pt requesting updraft. pt speaking with allergy physician when rt arrived. rt waited for approx 5-6 mins. pt in no distress. due to other tasks needing done, resp asked nurse to call when pt was ready. at 0920, nursing called again stating pt was ready for tx. however, rt was with critical pt in er and told nurse, rt would be with pt as soon as possible. rt arrived to see pt at 1040. pt in group therapy. unable to administer tx at this time. rt spoke with nurse and nurse stated pt was in no distress.
--- NOTE | 2024-11-24 11:24 | PC.RESP ---
rt called again at 1114 stating pt stated she was ready for her tx. resp arrived at approx 1120. pt is with at this time. no distress noted
[2024-11-24 13:58] VITALS: PULSE 86; RESP 16; TEMP 36.6; O2SAT 94
--- NOTE | 2024-11-24 14:11 | P.NPUPN_ITS ---
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 The patient was followed on an outpatient basis by [facility]. She reports that she has been feeling the same. She states that she is not suicidal. She was unable to persist provide any clear details regarding her use of Valium although she had stated that she was prescribed Valium 10 mg 4 times a day. The patient reported that she took that medication for anxiety. She had reported no history of benzodiazepine withdrawal. She had reported having problems with breathing and the patient was urged not to take so much Valium given her significant problems with oxygen desaturation. She had reported having struggles with managing her anxiety. She had reported that she was also concerned about a CT which showed evidence of a previous infection she stated. She continued to report that she was trying to get better. She reports that she needed pain medication and wanted to get off of Valium. She had reported having pain throughout her body. The patient remained on one-to-one as she had required 2 L of oxygen on a regular basis to avoid becoming hypoxic. Mental Status Exam 2 MSE Comments: This is a morbidly obese white female in hospital scrubs with poor grooming and eye contact. No abnormal movements except for psychomotor retardation. She was cooperative with exam in moderate distress. Speech was increased in rate and normal in volume. Mood described as all right. Her affect was odd and subdued. Thought process was circumstantial and meandering. Thought content: Patient denied suicidal or homicidal ideation. There were no overt delusions appreciated and she did not appear to be responding to internal stimuli. She denied any auditory or visual hallucinations. Her attention and concentration were intact and memory appeared unreliable but no more formally tested. She is alert and oriented times person and place and time. Insight, judgment and impulse control are impaired. Vitals/I&O/Wt Last Vital Signs Temp 97.9 F 11/24/24 13:58 Pulse 86 11/24/24 13:58 Resp 16 11/24/24 13:58 BP 111/70 11/24/24 06:00 Pulse Ox 94 11/24/24 13:58 O2 Del Method Room Air 11/24/24 13:58 O2 Flow Rate 2 11/22/24 14:00 Weight last 48 hrs Weight 127.913 kg Data NPU 11/21/24 14:11/22/24 08:58 A&P Assessment and plan 1. Bipolar 1 disorder, depressed: 2. Suicidal ideation: Plan: This is a 54-year-old white female with significant somatic focus and presenting on a 96-hour hold after reporting suicidality to an outpatient clinic and once again to the emergency department but a convoluted story of issues surrounding the fluid on her heart with no evidence of how that was determined with concern for delusions and psychosis. 1. Increase seroquel to 400mg at night, Continue lamotrigine at 50mg bid, discontinue prazosin secondary to concern about falls and d/c Doxepin with concerns about drug interactions. Restart valium 5mg tid, will contact or leave message for primary provider, Lupe Gutierrez. 2. Continue every 15 minute checks for safety. 3. Encourage individual, group and milieu therapy. 4. Obtain collateral information. 5. Observe against the backdrop of the 96-hour hold. 6. Prescient hospitalist consult I will follow recommendations as indicated. PDMP PDMP Reviewed: Not Reviewed Involuntary Hold Information 2 Hold Status: Legal Status: 96 Hour Hold Date/Time Hold Expires: 11-25-24 @ 2213 Attestations NPU 2 Medical Necessity Statement*: Inpatient hospitalization is medically necessary and the clinically appropriate intervention at this time. We will monitor/initiate medications and make changes as indicated.? The patient?s likely length of stay is 2-4 days. Coding Level of Care Code Acute Code for Chg Fwd Diagnoses Bipolar 1 disorder, depressed F31.9 Suicidal ideation R45.851
[2024-11-24 14:14] VITALS: BP 118/92; PULSE 86; RESP 16; TEMP 36.6; O2SAT 93
--- NOTE | 2024-11-24 17:52 | PC.NURSE ---
pt. stated it has been several days since her last BM and requested Mag Citrate. Pt. also requested Lasix. Dr. Curran gave verbal order for Mag Citrate 296ml PO one time dose. Dr. Curran did not ok the Lasix at this time. Pt. was informed her Kidney function was low and Lasix was hard on the kidneys.
--- NOTE | 2024-11-24 18:52 | PC.NURSE ---
Pt. was given a portable O2 tank today, used it once and then would come out of her room with out the portable O2 tank. Pt. was educated on importance of maintaining o2 stats.
--- NOTE | 2024-11-24 19:00 | PC.NURSE ---
o2 85% oxygen tank offered, pt ref. oxygen tank while brushing teeth
[2024-11-24 19:01] VITALS: PULSE 117; RESP 20; O2SAT 85
[2024-11-24] MEDS: magnesium citrate Btl 296 mL PO (20:17)
[2024-11-24 20:54] VITALS: BP 129/83; PULSE 109; RESP 18; O2SAT 93
[2024-11-25] MEDS: benzocaine 20% 7 gm 1 APPLIC MUCOUS MEM (04:37)
[2024-11-25 04:38] VITALS: BP 103/77; PULSE 110; RESP 18; TEMP 36.7; O2SAT 90
[2024-11-25] MEDS: ferrous sulfate EC 325 mg Tablet PO (09:09)
[2024-11-25 09:12] VITALS: PULSE 92; RESP 18; O2SAT 93
--- NOTE | 2024-11-25 11:51 | W.PM.NPUDCS ---
Diagnoses at Discharge Discharge Diagnosis 1. Bipolar 1 disorder, depressed: 2. Suicidal ideation: Reason for Visit Reason for Visit: SI Brief History: History of Present Illness Khushi Portillo is a 54 year old female who presented to the emergency department with the following report: Chief Complaint: Psychiatric Symptoms Stated Complaint: SI Time Seen by Provider: 11/19/24 17:05 History of Present Illness: Patient is 54-year-old female with longstanding history of depression, and anxiety, presents for suicide ideations. Patient presented to [facility] clinic in [place] with lower extremity edema, and suicide ideations. She was brought from the clinic over here due to psychiatric symptoms with suicide ideation. Patient stated her affairs were in order. She did not have a plan. Contributing factors: Patient lost her emotional support animal of 20 years that she relates as her daughter. Apparently she received her cat when she lost her children 20 years ago, and her cat was with her at all times. Her cat could talk, and was quite smart. She has guilt for keeping her cat alive an additional 2 months at the vet felt like the cat should be euthanized, and she has guilt for given her cat Valium with the gabapentin the last time when she quit talking. She is tearful, having bad dreams, dreams are worsening in nature. Associated symptoms: Reports depression and suicidal ideation. She was admitted to the neuropsychiatric unit for definitive treatment of those issues. She was very upset about being here after her everything that occurred that was a plan for her to be here including coming from the clinic and being evaluated in the emergency department she was advised she would come to the unit but then was upset that she was not discharged immediately they put an affidavit in the chart but ultimately she was starting to push for discharge and so it 96-hour hold was instituted. Her UDS was unremarkable for anything outside of benzodiazepines and she does have a prescription reportedly for Valium 10 mg 1/2-1 p.o. 4 times daily as needed. She presented today reporting a very convoluted story about why she is here. Mostly what she was able to articulate was that she was sad at the of her cat. She reported that her cat was able to talk but then later as we reviewed that she was talking about occasionally saying mama. She then talked about the of her boys multiple years ago but then she identified that she was actually talking about the cats. And then she was talking about her sons reporting that they are in their 30s and she still pays for everything and there is always conflicts on the property but which she lives. She reports that this property has her children and their father who is her ex and they all live on the property but most of them in different buildings. She talked about significant conflicts on that property but cannot really articulate why she was identifying herself as suicidal yesterday both at the clinic and then here in the emergency department. She tried to explain it but it once again became a very long convoluted story that had something to do with her physical health and her reporting that she maintain fluid and had great concern about the fluid around her stomach and around my heart. She reports that her outpatient doctor identified that this fluid overload around her heart existed but she could not articulate how that was shown she talked about having blood draws and we discussed the fact that you cannot determine fluid around the heart by a blood test if she denied having had any confirmatory imaging. We tried to have a conversation to help understand what would separate this from a somatic delusion and she was not able to answer questions in a way that was meaningful. She denied active drug use. She reported a history of hospitalization in the distant past but then could not explain why that would have happened. She was very focused on wanting to discharge whenever questions were asked to get more helpful information she was incapable. We discussed getting some collateral information from her daughter and her out patient positions to understand what it happened in this situation and that we would identify what we could go from there. Hospital Course Hospital Course The patient had presented with acute respiratory failure that required some further intervention by the hospitalist. The patient had anasarca. The patient had been taking Valium up to 40 mg a day which was concerning given her level of respiratory depression. Eventually, Valium was readded at 5 mg 3 times a day to be taken routinely. The patient's outpatient provider would be informed clearly of our concerns of continuing to prescribe that much Valium to this patient who had taken the medicine relatively inconsistently. Patient had admitted that she was not taking her CPAP for sleep apnea and appeared hypoxic requiring 2 L of oxygen throughout the day. During the hospitalization, the patient had routine laboratory studies which were within normal limits except for a few outliers.?Her medications were simplified during hospital stay. Seroquel was increased to 400mg at night and prazosin was discontinued. Lamotrigine was increased to 50mg twice a day. Additionally, there was a general medical evaluation which was also within normal limits and revealed no new acute processes.? At the time of discharge, lethality was denied and psychosis was resolving.? Mood and anxiety were well managed.? The patient endorsed a plan to avoid all drugs of abuse and follow up with the aftercare recommendations of the treatment team.? The patient was evaluated and deemed to be absent credible lethality and had achieved the maximum benefit from an inpatient hospitalization, and so was discharged. ? Involuntary Hold Information Hold Status: Legal Status: 96 Hour Hold Date/Time Hold Expires: 11-25-24 @ 2216 Mental Status Exam MSE Comments: This is a morbidly obese white female in hospital scrubs with poor grooming and eye contact. No abnormal movements except for psychomotor retardation. She was cooperative with exam in no acute distress. Speech was normal in rate and normal in volume. Mood described as okay. Her affect was less restricted. Thought process was linear and more goal directed. Thought content: Patient denied suicidal or homicidal ideation. There were no overt delusions appreciated and she did not appear to be responding to internal stimuli. She denied any auditory or visual hallucinations. Her attention and concentration were intact and memory appeared unreliable but no more formally tested. She is alert and oriented times person and place and time. Insight, judgment were fair. Her impulse control was fair. Discharge Data Studies Completed and Pending: Completed Studies During Hospitalization Category Date Time Status CT chest wo con 7 1250 Routine Cat Scan 11/22/24 12:34 Completed XR chest 1V oscar ble [id number] Routine Exams 11/21/24 12:39 [place] [id number] Routin e Ultrasound 11/22/24 12:35 Completed CV. echo complete * [id number] Routine Ultrasound 11/22/24 13:43 Completed Radiology Impressions Chest X-Ray 11/21/24 12:39 IMPRESSION: Stable chest without acute abnormality as above. Chest CT 11/22/24 12:34 IMPRESSION: No acute findings. Venous Duplex 11/22/24 12:35 IMPRESSION: No evidence of deep vein thrombosis. Laboratory Results WBC 7.76 10^3/uL (3.2 9-11.43) 11/21/24 14:06 RBC 3.99 10^6/uL (3.8 5-5.65) 11/21/24 14:06 Hgb 12.00 g/dL (11.27 -16.99) 11/21/24 14:06 Hct 37.8 % (36-47) 11/21/24 14:06 MCV 94.7 fl (85-98) 11/21/24 14:06 MCH 30.1 pg (27-33) 11/21/24 14:06 MCHC 31.7 g/dL (30-55) 11/21/24 14:06 RDW 14.3 % (12.1-15.1 ) 11/21/24 14:06 Plt Count 237 10^3/cmm (157 -399) 11/21/24 14:06 MPV 10.0 fL (7.4-10.4 ) 11/21/24 14:06 Neut % (Auto) 51.2 % 11/21/24 14:06 Lymph % (Auto) 34.8 % 11/21/24 14:06 [place] % (Auto) 8.9 % 11/21/24 14:06 Eos % (Auto) 4.3 % 11/21/24 14:06 Baso % (Auto) 0.5 % 11/21/24 14:06 Neut # (Auto) 3.98 10^3/uL (1.8 -7.7) 11/21/24 14:06 Lymph # (Auto) 2.7 10^3/uL (0.8- 4.8) 11/21/24 14:06 [place] # (Auto) 0.7 10^3/uL (0.2- 0.9) 11/21/24 14:06 Eos # (Auto) 0.3 10^3/uL (0.0- 0.8) 11/21/24 14:06 Baso # (Auto) 0.0 10^3/uL (0.0- 0.1) 11/21/24 14:06 Nucleated RBC % (a uto) 0 % 11/21/24 14:06 Nucleated RBCs # 0.0 /100WBC 11/21/24 14:06 Sodium 140 mmol/L (136-1 45) 11/22/24 08:58 Potassium 4.2 mmol/L (3.5-5 .1) 11/22/24 08:58 Chloride 97 mmol/L (98-107 ) L 11/22/24 08:58 Carbon Dioxide 31 mmol/L (22-29) H 11/22/24 08:58 Anion Gap 16.2 (5-19) 11/22/24 08:58 BUN 24 mg/dL (6-20) H 11/22/24 08:58 Creatinine 1.2 mg/dL (0.5-0. 9) H 11/22/24 08:58 GFR Calculation 46.5 mL/min (90-1 30) L 11/22/24 08:58 Glucose 132 mg/dL (65-115 ) H 11/22/24 08:58 POC Glucose 158 mg/dL (70-110 ) H 11/25/24 11:18 Calculated Osmolal ity 296 mOsm/kg (285- 295) H 11/22/24 08:58 Calcium 9.4 mg/dL (8.5-10 .5) 11/22/24 08:58 Total Bilirubin 0.2 mg/dL (0.15-1 .2) 11/19/24 17:52 AST 18 U/L (0-32) 11/19/24 17:52 ALT 22 U/L (0-33) 11/19/24 17:52 Alkaline Phosphata se 118 U/L (35-105) H 11/19/24 17:52 Troponin T Baselin e 9 ng/L (0-10) 11/21/24 14:06 Troponin T 120 Min lisandro 8.81 ng/L (0-10) 11/21/24 17:13 Delta Troponin T -0.19 ABS# (0-10) L 11/21/24 17:13 Troponin T Hi Sens 6Hr 7.53 ng/L (0-10) 11/21/24 20:13 Troponin T Hi Sens 6Hr Delta -1.47 ng/L (0-12) L 11/21/24 20:13 NT-Pro-B Natriuret Pep < 36 pg/mL (0-125 ) 11/21/24 14:06 Total Protein 6.5 g/dL (6.6-8.7 ) L 11/19/24 17:52 Albumin 3.7 g/dL (3.5-5.2 ) 11/19/24 17:52 Globulin 2.8 g/dL (1.3-4.6 ) 11/19/24 17:52 TSH 2.62 uIU/mL (0.27 -4.20) 11/19/24 17:52 Urine Color Yellow (Yellow) 11/19/24 18:05 Urine Appearance Clear (CLEAR) 11/19/24 18:05 Urine pH 6.0 (5-7) 11/19/24 18:05 Ur Specific Gravit y 1.026 (1.005-1.0 30) 11/19/24 18:05 Urine Protein Negative (Negati ve) 11/19/24 18:05 Urine Glucose (UA) Negative (Normal ) 11/19/24 18:05 Urine Ketones Trace (Negative) 11/19/24 18:05 Urine Blood Negative (Negati ve) 11/19/24 18:05 Urine Nitrate Negative (Negati ve) 11/19/24 18:05 Urine Bilirubin Negative (Negati ve) 11/19/24 18:05 Urine Urobilinogen 1.0 mg/dL (Negati ve) 11/19/24 18:05 Ur Leukocyte Dorothy ase Negative (Negati ve) 11/19/24 18:05 Urine RBC 0-2 /hpf (0-2) 11/19/24 18:05 Urine WBC 0-5 /hpf (0-5) 11/19/24 18:05 Ur Squamous Epith Cells 0-5 /hpf (0-5) 11/19/24 18:05 Amorphous Sediment Not Reportable 11/19/24 18:05 Urine Bacteria Trace /hpf (NONE) 11/19/24 18:05 Hyaline Casts 2.46 /lpf 11/19/24 18:05 Salicylates < 0.3 mg/dL (3-10 ) L 11/19/24 17:52 Urine Opiates Scre en Negative ng/mL (N egative) 11/19/24 18:05 Acetaminophen 5.5 ug/mL (10-30) L 11/19/24 17:52 Ur Barbiturates Sc reen Negative ng/mL (N egative) 11/19/24 18:05 Ur Phencyclidine S crn Negative ng/mL (N egative) 11/19/24 18:05 Ur Amphetamines Sc reen Negative ng/mL (N egative) 11/19/24 18:05 U Benzodiazepines Scrn Positive ng/mL (N egative) H 11/19/24 18:05 Urine Cocaine Scre en Negative ng/mL (N egative) 11/19/24 18:05 U Marijuana (THC) Screen Negative ng/mL (N egative) 11/19/24 18:05 Ethyl Alcohol < 10 mg/dL (0-10) 11/19/24 17:52 Vitals: Last Vital Signs Temp 98.1 F 11/25/24 04:38 Pulse 92 11/25/24 09:12 Resp 18 11/25/24 09:12 BP 103/77 11/25/24 04:38 Pulse Ox 93 11/25/24 09:12 O2 Del Method Nasal Cannula 11/25/24 09:12 O2 Flow Rate 2 11/25/24 09:12 Discharge Plan Discharge Patient Disposition: Home Condition: Stable Prescriptions: New furosemide [Lasix] 20 mg tablet 20 mg PO DAILY PRN (Reason: for weight gain 3lbs or edema or sob) 30 Days Qty: 30 0RF potassium chloride [Klor-Con M10] 10 mEq tablet,ER particles/crystals 10 meq PO DAILY PRN (Reason: with lasix) 30 Days Qty: 30 0RF quetiapine [Seroquel] 400 mg tablet 400 mg PO 2100 Qty: 30 1RF lamotrigine 100 mg tablet 50 mg PO BID 30 Days Qty: 30 1RF diazepam 5 mg Tablet 5 mg PO TID PRN (Reason: Anxiety) 15 Days Qty: 45 1RF Continued alcohol swabs Pads, Medicated 1 pad topical DIRECTED Qty: 200 12RF Rx Instructions: Use as directed to clean skin prior to finger stick or medication injection ferrous sulfate 325 mg (65 mg iron) tablet 325 mg PO DAILY Qty: 90 3RF atorvastatin 40 mg tablet 40 mg PO DAILY Qty: 90 1RF cetirizine [Zyrtec] 10 mg tablet 10 mg PO DAILY Qty: 90 3RF fluticasone propionate 50 mcg/actuation spray,suspension 2 spray intranasal DAILY Qty: 16 11RF ondansetron 8 mg tablet,disintegrating 8 mg PO Q8H PRN (Reason: nausea and vomiting) Qty: 20 0RF hydrochlorothiazide 25 mg tablet See Rx Instructions .ROUTE .COMPLEX Qty: 90 0RF Dose Instruction: TAKE ONE TABLET BY MOUTH ONCE DAILY IN THE MORNING Rx Instructions: TAKE ONE TABLET BY MOUTH ONCE DAILY IN THE MORNING (DME) lancets Misc See Rx Instructions .MEDSUPPLY Qty: 200 12RF Rx Instructions: Use as directed to prick skin for blood sugar checks (DME) blood-glucose meter Misc See Rx Instructions .MEDSUPPLY Qty: 1 0RF Rx Instructions: Use as directed for checking blood sugar (DME) Blood Glucose Test Strip See Rx Instructions .MEDSUPPLY Qty: 200 12RF Rx Instructions: Use as directed with glucometer to check blood sugar epinephrine [EpiPen] 0.3 mg/0.3 mL auto-injector 0.3 mg IM Q10M PRN (Reason: anaphylaxis) Qty: 1 1RF Rx Instructions: may repeat dose x 1 after 5-15min. metformin 500 mg tablet See Rx Instructions .ROUTE .COMPLEX Qty: 60 0RF Dose Instruction: TAKE ONE TABLET BY MOUTH TWICE DAILY WITH MEALS Rx Instructions: TAKE ONE TABLET BY MOUTH TWICE DAILY WITH MEALS gabapentin 300 mg capsule 300 mg PO TID Qty: 90 1RF albuterol sulfate 2.5 mg /3 mL (0.083 %) solution for nebulization 2.5 mg continuous nebulization TID PRN (Reason: Shortness Of Breath Or Wheezing) Discontinued quetiapine 100 mg tablet 250 mg PO DAILY lamotrigine 25 mg tablet 25 mg PO DAILY Rx Instructions: take three tablets by mouth daily for mood. doxepin 25 mg capsule 25 mg PO BEDTIME prazosin 2 mg capsule 2 mg PO BEDTIME Rx Instructions: take 3 to 4 capsules by mouth at bedtime for nightmares diazepam 10 mg tablet See Rx Instructions .ROUTE .COMPLEX PRN (Reason: Anxiety) Rx Instructions: 10 mg orally as needed ;take 1/2 to 1 tablet by mouth four times daily as needed for anxiety Discharge Order = DC NOW: Discharge Order (Routine); Ordered 11/25/24 Ordered By: Arun Curran Referrals: [facility] [Other] - 12/22/24 11:00 am Referral Note: Follow up with Lupe Grover, Psychologist Nata Goncalves MD [Physician, Pulmonology] - 12/02/24 9:25 am Referral Note: Establish care. Kate Phillips NP [Primary Care Provider, Family Practice] - 12/03/24 12:45 pm Referral Note: Follow up Discharge Diet: Low Salt Discharge Activity: Resume usual activity Patient Instructions: Diazepam (By mouth), Help Prevent Suicide (DC), Opioid Safety, Patient Portal & Bryanna Instructions Discharge Attestations NPU Time Spent in Discharge Care*: less than 30 min Specific Discharge Activities: Specific discharge activities: educating patient, discussing with watch case polisher/social workers/dc planners and documenting/other paperwork Coding Level of Care Code Acute Code for Chg Fwd Diagnoses Bipolar 1 disorder, depressed F31.9 Suicidal ideation R45.851
[2024-11-25 12:03] VITALS: BP 112/80; PULSE 111; RESP 18; TEMP 36.4; O2SAT 97
[2024-11-25] MEDS: fluticasone nasal spray 16gm Btl 2 SPRAY INTRANASAL (12:10)
[2024-11-25 14:00] VITALS: BP 110/78; PULSE 68; RESP 18; TEMP 37; O2SAT 91
== END 2024-11-25 16:09 | disposition home or self-care (01) | DRG 885 ==
LOC: ER 19:20 → NP 19:22
PROVIDERS: Family Medicine; Admitting Provider Psychiatry & Neurology Psychiatry; Emergency Provider Physician Assistant; PCP Nurse Practitioner Family; Visit Provider Psychiatry & Neurology Psychiatry
DX: F31.9 Bipolar disorder, unspecified (principal); J96.01 Acute respiratory failure with hypoxia; R45.851 Suicidal ideations; Z68.42 Body mass index [BMI] 45.0-49.9, adult; E66.01 Morbid (severe) obesity due to excess calories; F41.9 Anxiety disorder, unspecified; E11.9 Type 2 diabetes mellitus without complications; Z79.84 Long term (current) use of oral hypoglycemic drugs; E78.5 Hyperlipidemia, unspecified; G47.30 Sleep apnea, unspecified
CPT/HCPCS: 36415; 36416; 71045; 71250; 80048; 80053; 80306; 80307; 81001; 82962; 83880; 84443; 84484; 85025; 93005; 93306; 93970; 94640; 94664; 97150; 97165; 99285; J7613; J9999; Q0162

== ENCOUNTER → 2024-12-03 13:00 | Outpatient (BNVA) | payer MEDICAID, SELFPAY | PROVIDERS: PCP Nurse Practitioner Family; Visit Provider Nurse Practitioner Family | DX: R60.9 Edema, unspecified (principal) | CPT/HCPCS: 80048 ==

== ENCOUNTER → 2024-12-08 14:50 | Outpatient (BNVA) | payer MEDICAID, SELFPAY | PROVIDERS: PCP Nurse Practitioner Family; Visit Provider Internal Medicine | DX: J96.11 Chronic respiratory failure with hypoxia (principal); Z99.81 Dependence on supplemental oxygen; G47.33 Obstructive sleep apnea (adult) (pediatric); Z99.89 Dependence on other enabling machines and devices; Z91.198 Patient's noncompliance with other medical treatment and regimen for other reason; I50.9 Heart failure, unspecified; J45.40 Moderate persistent asthma, uncomplicated; J92.9 Pleural plaque without asbestos; T78.40XA Allergy, unspecified, initial encounter; X58.XXXA Exposure to other specified factors, initial encounter; J44.9 Chronic obstructive pulmonary disease, unspecified | CPT/HCPCS: 36415; 85025; 99214 ==

== ENCOUNTER 2024-12-15 14:25 | Outpatient (CLI) | payer MEDICAID, SELFPAY ==
--- NOTE | 2024-12-15 14:31 | MM_ITS ---
WS: [id number] BILATERAL 3D TOMOSYNTHESIS DIGITAL SCREENING MAMMOGRAPHY WITH CAD CLINICAL INFORMATION: Z12.39 - Encounter for other screening for malignant neop... HISTORY: Screening mammogram. No current complaints. COMPARISON: 2021 TECHNIQUE: Bilateral CC and MLO views. FINDINGS: Scattered fibroglandular densities bilaterally. No suspicious focal mass, asymmetry, calcifications, or architectural distortion. No evidence of malignancy. Punctate and lucent centered calcifications. MM/MM [facility] tomosynthesis [id number] IMPRESSION: DENSITY: There are scattered areas of fibroglandular density. BI-RADS: 2 - Benign. FOLLOW UP: 1 Year Follow-up Recommend return to annual screening mammography.
--- NOTE | 2024-12-15 14:31 | XR_ITS ---
WS: [id number] SCREENING DEXA SCAN [employer] [facility] [employer] CLINICAL INFORMATION: Z13.820 - Encounter for screening for osteoporosis COMPARISON: None. FINDINGS: The L1-L4 bone mineral density measures 0.820 g/cm2. This corresponds to a T score score of -3.0 and Z score of -3.3. Left femoral neck bone mineral density measures 0.787 g/cm2. This corresponds to a T score of -1.8 and Z score of -1.9. Right femoral neck bone mineral density measures 0.769 g/cm2. This corresponds to a T score -1.9of and Z score of -2.0. Mean femoral neck bone mineral density measures 0.778 g/cm2. This corresponds to a T score of -1.8 and Z score of -1.9. XR/XR DEXA axial skeleton* [id number] IMPRESSION: Osteoporosis lumbar spine. Osteopenia femoral necks. Patient's FRAX calculated 10 year probability for major osteoporotic fracture i s 21.7% and osteoporotic hip fracture is 4.2%.
== END 2024-12-15 14:26 | disposition home or self-care (01) ==
PROVIDERS: PCP Nurse Practitioner Family; Visit Provider Nurse Practitioner Family
DX: Z12.31 Encounter for screening mammogram for malignant neoplasm of breast (principal); Z13.820 Encounter for screening for osteoporosis; R92.323 Mammographic fibroglandular density, bilateral breasts; R92.1 Mammographic calcification found on diagnostic imaging of breast; M81.0 Age-related osteoporosis without current pathological fracture; M85.89 Other specified disorders of bone density and structure, multiple sites
CPT/HCPCS: 77063; 77067; 77080